=== PATIENT | female | born 1950 | race Caucasian/White ===

== ENCOUNTER 2016-08-18 20:38 | Inpatient (IN) ==
[2016-08-18 21:25] VITALS: BMI 32.2
[2016-08-18] MEDS ORDERED: PRAMIPEXOLE DI HCL 3 MG PO SCH (22:00)
[2016-08-18] MEDS: PERCOCET 5-325 PO PRN (22:04)
[2016-08-18] MEDS ORDERED: COLACE PO PRN (22:09)
[2016-08-18] MEDS ORDERED: SENNA PO PRN (22:29)
[2016-08-18] MEDS ORDERED: NORVASC ONE (22:37)
[2016-08-18] MEDS: VALIUM PO PRN (22:41)
[2016-08-18] MEDS: FLEXERIL PO SCH ×2 (22:53→22:57)
[2016-08-18] MEDS: NORVASC PO SCH (22:56)
[2016-08-19] MEDS: ULTRAM PO SCH ×4 (00:57→17:17)
[2016-08-19] MEDS: PERCOCET 5-325 PO PRN ×2 (03:07→18:18)
[2016-08-19] MEDS: TOPROL XL PO SCH (08:42)
[2016-08-19] MEDS: MIRAPEX PO SCH ×2 (08:42→21:17)
[2016-08-19] MEDS: FERROUS SULFATE PO SCH (08:43)
[2016-08-19] MEDS: FLEXERIL PO SCH ×3 (08:43→21:16)
[2016-08-19] MEDS: NORVASC PO SCH (08:44)
[2016-08-19] MEDS ORDERED: NORVASC PO SCH (09:00)
--- NOTE | 2016-08-19 11:30 | RS.OTINEVL ---
Subjective - Patient information Date of Evaluation: 08/19/16 Date of Arrival on Unit: 08/18/16 Admitted From:: Facility Transfer Usual Living Arrangement: With Spouse Living Arrangement Comments: Lives at home in a one level home. Pt needs a ramp to be built. Home Environment: Mobile Home, Stairs (many) (4 in the back, 8 in the front), Rail Surgical History Comments:: Pt fell and fractured her RUE wrist, and Right hip. Subjective Information/ Patient Comments:: I fell on a concrete floor. I am not used to people taking care of me. 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 Current Level of Function: Partially Dependent Current Equipment Used at Home: None Pain Assessment - Pain Pain Score: 0 (took pain meds) Side: right Pain Aggravating Factors: ADL's, Changing Position, Exercise/Activity, Standing Pain Alleviating Factors: Ice, Medication, Position Change, Sitting Interventions - Objective Patient Orientation: Person, Place, Time, Situation Current Interventions: IV's Observation: Pt was emotional a couple of times during her evaluation. Interventions - ROM Right Upper Extremity AROM: Marked limitation Left Upper Extremity AROM: WFL's Comments: RUE in a Cast - Strength Right Upper Extremity Strength: Severe Weakness Left Upper Extremity Strength: Normal - Sensation Right Upper Extremity Sensation: Intact/Normal Left Upper Extremity Sensation: Intact/Normal Balance - Sitting Balance Static Sitting Balance: Fair Dynamic Sitting Balance: Fair - Standing Balance Static Standing Balance: Poor Dynamic Standing Balance: Poor ADL Skills - Self Feeding Self Feeding: Min Assist - Grooming Grooming: Max Assist - Bathing Bathing UE: Max Assist Bathing LE: Max Assist - Dressing Dressing UE: Max Assist Dressing LE: Max Assist - Toilet Management Toileting Management: Max Assist, 2 person assist Functional Mobility - Bed Mobility Rolling R/L: Min Assist Scooting: Min Assist Supine to Sit: Min Assist Sit to Supine: Min Assist - Transfers Sit to Stand: Min Assist, 2 person assist Stand to Sit: Min Assist, 2 person assist Stand Pivot Transfers: Min Assist, 2 person assist - Ambulation Weight Bearing Status: PWB Assistive Device Used: Rolling Walker Assistance needed with Ambulation: 2 person assist - Safety Awareness Safety Awareness: Good Additional Treatment Performed - Additional units charged ADL: 15 - Time with patient Total treatment time: 30 Activities Patient Interests:: Watching Television, Visiting/Socializing Patient Education Patient Education: Education of diagnosis, Body/Joint mechanics, Home Exercise Program, Home Safety, Education of Plan of Care Teaching Recipient: Patient Teaching Methods: Teach Back Method Used, Discussion Assessment Problem List:: Decreased level of function, Requires training/education, Decreased safety/Risk of falls, Weakness, Pain limits previous level of function Rehab Potential: Good Further Therapy Indicated?: Yes Short Term Goals - Goals GOAL 1: Pt to be independent with toilet hygiene Goal to be met by: 08/25/16 GOAL 2: Pt to be minimal assist to LB dressing. Goal to be met by: 08/25/16 GOAL 3: Pt to increase activity tolerance to 15 minutes with rests PRN. 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 Goal to be met by: 09/01/16 GOAL 2: Pt to be independent with home exercise program. Goal to be met by: 09/01/16 GOAL 3: Pt to increase activity tolerance to 30 minutes with rests PRN. Goal to be met by: 09/01/16 Plan Plan of Care: Therapeutic EX, Neuromuscular Re-Educ, Therapeutic Activity, Self- Care/Home Management Modalities: Cold Pack/Cryotherapy Frequency of Treatment: 1-2 X day, as tolerated Duration of Treatment: 2 Weeks Anticipated Discharge Destination: Home
--- NOTE | 2016-08-19 11:54 | RS.PTINEVL ---
Subjective - Patient information Date of Evaluation: 08/19/16 Date of Arrival on Unit: 08/18/16 Admitted From:: Facility Transfer Usual Living Arrangement: With Spouse Home Environment: Mobile Home, Stairs (many) (4 in the back, 8 in the front), Rail Subjective Information/ Patient Comments:: Patient states she has not been in the hospital since having her daughter. Reports cast on right wrist is loose. States she wants to be able to do as much for herself as she can. She apologizes repeatedly and gets emotional. Daughter is in the room who reports that she will be helping her mother when they get home. Patient's spouse is unable to help her. Reports pain in right wrist and hip comes and goes. Currently, in bed, pain is not too bad. 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 Range of Motion - ROM Right Upper Extremity AROM: Marked limitation (right wrist/hand) Left Upper Extremity AROM: WFL's Right Lower Extremity AROM: Marked limitation (right hip pinning) Left Lower Extremity AROM: WFL's Muscle Strength - Muscle Strength Right Upper Extremity Strength: Normal Left Upper Extremity Strength: Normal Right Lower Extremity Strength: Mild Weakness Left Lower Extremity Strength: Normal Balance - Sitting Balance and Reactions Static Sitting Balance: Good Dynamic Sitting Balance: Good - Standing Balance and Reactions Static Standing Balance: Fair (-) Dynamic Standing Balance: Poor Functional Mobility - Bed Mobility Scooting: Mod Assist, 2 person assist, Verbal Cues, Tactile Cues Supine to Sit: Mod Assist, 2 person assist, Verbal Cues, Tactile Cues Sit to Supine: Max Assist, 2 person assist, Verbal Cues, Tactile Cues Comments:: Patient able to walk hips moderately further back on bed. Max assist of two for sit to supine. - Transfers Sit to Stand: Min Assist, Mod Assist, 2 person assist, Verbal Cues, Tactile Cues Stand to Sit: Min Assist, 2 person assist, Verbal Cues, Tactile Cues Stand Pivot Transfers: Mod Assist, 2 person assist, Verbal Cues, Tactile Cues - Safety Awareness Safety Awareness: Fair Ambulation - Ambulation Weight Bearing Status: PWB (30% right LE) Assistive Device Used: Platform Walker (wheeled) Distance: around foot of bed Assistance needed with Ambulation: Mod Assist, 2 person assist, Verbal Cues, Tactile Cues Quality of Ambulation: Patient needs reminding of weight bearing status on right LE. She works to reduce weight on right LE with verbal cues. Gait Deviations: Narrow Based gait, Forward posture, Short stride, Lacks step continuity Factors Affecting Ambulation: WB Status, Decreased Balance, Pain, Weakness, Decreased Coordination, Decreased ROM, Decreased Safety, Limited Endurance Treatment time - Time with patient Total treatment time: 38 Assessment - Assessment Problem List:: Decreased level of function, Requires training/education, Decreased safety/Risk of falls, Weakness, Pain limits previous level of function Rehab Potential: Good Further Therapy Indicated?: Yes Short Term Goals GOAL #1: Supine to sit with min Assist of 1 and verbal cues. Goal to be met by: 08/24/16 GOAL #2: Sit to stand with min A X 1 and verbal cues. Goal to be met by: 08/24/16 GOAL #3: Amb. with platform walker with min X1 60 feet. Goal to be met by: 08/26/16 Half-Way Goals GOAL #1: All bed mobility independent. Goal to be met by: 09/02/16 GOAL #2: All transfers with CGA of one with good saftey. Goal to be met by: 09/02/16 GOAL #3: Amb. household distances with Platform RW with CGA of one and good safety. Goal to be met by: 09/02/16 Plan Plan of Care: Therapeutic EX, Neuromuscular Re-Educ, Therapeutic Activity, Self- Care/Home Management Modalities: Cold Pack/Cryotherapy Frequency of Treatment: 1-2 X day, as tolerated Duration of Treatment: 2 Weeks Anticipated Discharge Destination: dependent on progress and wt bearing restriction
[2016-08-19] MEDS: XARELTO PO SCH (17:17)
[2016-08-20] MEDS: ULTRAM PO SCH ×4 (00:15→17:07)
[2016-08-20 08:26] LABS: BASOPHILS % (AUTO) 0.8 % (0.0-3.0); EOSINOPHILS # (AUTO) 0.3 K/ul (0.0-0.7); EOSINOPHILS % (AUTO) 5.8 % (0.0-7.0); HEMATOCRIT 30.5 % (37.0-47.0); IMMATURE GRANULOCYTE % (AUTO) 0.2 % (0.0-5.0); LYMPHOCYTES % (AUTO) 20.7 (10.0-50.0); MEAN CORPUSCULAR HEMOGLOBIN 29.1 pg (27.0-31.0); MEAN CORPUSCULAR HGB CONC 32.8 (31.8-35.4); MEAN CORPUSCULAR VOLUME 88.7 fl (81.0-99.0); MONOCYTES # (AUTO) 0.3 K/uL (0.4-2.0); MONOCYTES % (AUTO) 6.6 (0-10); NEUTROPHILS # (AUTO) 3.3 K/ul (2.0-6.9); NEUTROPHILS % (AUTO) 65.9; PLATELET COUNT 157 10^3/uL (140-440); RED BLOOD COUNT 3.44 10^6/ul (4.20-5.40); WHITE BLOOD COUNT 5.03 K/ul (4.6-10.2)
[2016-08-20 08:49] LABS: ALBUMIN 2.8 g/dL (3.4-5.0); ALBUMIN/GLOBULIN RATIO 0.8; ANION GAP 8.2; BILIRUBIN,TOTAL 0.73 mg/dL (0.00-1.20); BUN/CREATININE RATIO 15.78; CREATININE 0.76 mg/dL (0.60-1.30); POTASSIUM 4.2 mmol/L (3.5-5.10); TOTAL PROTEIN 6.3 g/dL (5.8-8.1)
[2016-08-20] MEDS: FLEXERIL PO SCH ×3 (09:54→21:03)
[2016-08-20] MEDS: NORVASC PO SCH (09:54)
[2016-08-20] MEDS: FERROUS SULFATE PO SCH (09:54)
[2016-08-20] MEDS: TOPROL XL PO SCH (09:54)
[2016-08-20] MEDS: MIRAPEX PO SCH ×2 (09:54→21:04)
[2016-08-20] MEDS: PERCOCET 5-325 PO PRN ×2 (13:55→19:24)
[2016-08-20] MEDS: XARELTO PO SCH (17:07)
[2016-08-20] MEDS ORDERED: NON-FORMULARY MEDICATION (Meclizine Hcl [Meclizine Hcl] 25 MG) PO SCH (21:00)
[2016-08-21] MEDS: ULTRAM PO SCH ×4 (00:36→17:46)
[2016-08-21] MEDS: PERCOCET 5-325 PO PRN ×4 (01:34→21:16)
[2016-08-21] MEDS ORDERED: ZYRTEC PO SCH (07:00)
[2016-08-21] MEDS: NORVASC PO SCH (08:32)
[2016-08-21] MEDS: ZYRTEC PO SCH (08:32)
[2016-08-21] MEDS: MIRAPEX PO SCH ×2 (08:32→20:31)
[2016-08-21] MEDS: TOPROL XL PO SCH (08:32)
[2016-08-21] MEDS: FERROUS SULFATE PO SCH (08:32)
[2016-08-21] MEDS: ANTIVERT PO SCH ×2 (08:32→20:32)
[2016-08-21] MEDS: FLEXERIL PO SCH ×3 (08:32→20:32)
[2016-08-21] MEDS ORDERED: MILK OF MAGNESIA PO PRN (09:00)
--- NOTE | 2016-08-21 09:20 | PN ---
DATE OF VISIT: 08/20/16 SUBJECTIVE: Gaby fell in the parking lot at work. She sustained a fracture to her right hip and right forearm; the latter was splinted and she went to surgery with repair of the hip. Her right knee was previously weak but she couldn't have any MRI or further testing because she had galindo. She started her convalescence at [facility] and was transferred here on the for more rehab and management. Today she is interested in having her bandages removed, something for bowels as she has had no bowel movement since the and she notes the splint on her right upper extremity is sliding downward and may need to to be repositioned. OBJECTIVE: V/S: Temperature 97.1, pulse 59, BP 118/71, respirations 22; she has been afebrile all day. GENERAL: Pleasant in no obvious distress. CHEST: Clear. CARDIOVASCULAR: S1, S2 without murmur. No peripheral edema. GI: Firm but nontender. Bowel sounds are present. MUSCULOSKELETAL/NEUROLOGIC: The right upper extremity is in a splint; it does come down to the tips of the finger; the thumb cannot be seen. She has some wiggle of the fingers and light touch is intact there. Her bandages on the right hip are dry and she was not ambulated. LAB REVIEW: White count 5, hemoglobin 10. Chemistries unremarkable. ASSESSMENT: # Right hip fracture # Right wrist fracture # Postop right hip # Casting right wrist # Gait decline - acute on chronic # Gait decline - chronic issues related to the right knee # Right knee pain and weakness # Postop anemia # Postop incision # Postop pain # Anticoagulation needs - currently on Xarelto # Constipation - complicated by pain meds and inactivity PLAN: 1. Medicines reviewed - same. 2. Laxative of choice. 3. Wound care - remove bandage and do so daily. 4. Staff will check with Dr. Arrington tomorrow and what he wants done with the splint. 5. Discharge plan from the onset - home. 6. Physical therapy to continue to work with the special needs. 7. Maybe an MRI of the knee wants the galindo are removed. MAURI
[2016-08-21] MEDS: XARELTO PO SCH (17:46)
[2016-08-22] MEDS: ULTRAM PO SCH ×5 (00:13→23:54)
[2016-08-22] MEDS: MIRAPEX PO SCH ×2 (08:00→21:00)
[2016-08-22] MEDS: TOPROL XL PO SCH (08:00)
[2016-08-22] MEDS: ZYRTEC PO SCH (08:01)
[2016-08-22] MEDS: ANTIVERT PO SCH ×2 (08:01→21:01)
[2016-08-22] MEDS: FLEXERIL PO SCH ×3 (08:01→21:01)
[2016-08-22] MEDS: FERROUS SULFATE PO SCH (08:01)
[2016-08-22] MEDS: NORVASC PO SCH (08:01)
--- NOTE | 2016-08-22 09:50 | HP ---
SOURCE: The source of this information is prior knowledge of the patient, review of her previous medical records, her current chart as well as discussion with she and her daughter, all considered reliable. PATIENT PROFILE: The patient is a 66-year-old female resident of [place]; she was cooperative. CHIEF COMPLAINT: "I broke my leg." BRIEF HISTORY OF PRESENT ILLNESS: The patient was walking across the parking lot at work and she fell. She had injury to her right wrist and hips; was brought to this facility and was found to have fractures of both. She was admitted for surgical interventions at least on her hip. There was no loss of consciousness. For several months, she has had problems with pain on and off in her right knee; it was more bothersome the day of the injury. It has even recently had swelling and even a resting pain. The last time in the office she was reluctant to have any intervention. No chest pain or shortness of breath. PAST HISTORY: CHILDHOOD: Unremarkable. ALLERGIES/INTOLERANCE: NKDA CURRENT MEDICATIONS: 1. Norvasc/Felodipine 5 mg one b.i.d. 2. Toprol/metoprolol succinate XL 50 mg once a day 3. Mirapex/pramipexole 0.25 mg one p.o. each day and 1.5 mg at night 4. Ultram/tramadol 50 mg one q.6h p.r.n. pain HOSPITALIZATIONS/SURGERIES/PROCEDURES: The patient is 4, Para 3, AB 1; had a dilation and curettage at age 22 that was benign and a tubal ligation at age 34. Hospitalizations at [facility] in [place] 06/06/14 through 06/08/[address] Greenberg. SOCIAL HISTORY: Never smoked though exposed to secondary smoke all her life. No alcohol use or drugs. 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 She was in 1973 to her current . FAMILY HISTORY: Heart disease in mother and two sisters and son. Diabetes in mother, colon cancer in brother and sister. Stomach cancer in father. REVIEW OF SYSTEMS: GENERAL: There has been no recent fever. INTEGUMENT: No wounds or rash. HEENT: She did not hit her head and there is no headache. NECK: Denies pain or mass. CHEST: Denies cough, wheeze or hemoptysis. CARDIOVASCULAR: Denies chest pain, palpitations, ankle edema; she does have hypertension. GI: No abdominal pain, nausea, vomiting, diarrhea, melena. : No dysuria, frequency or urgency. MUSCULOSKELETAL/NEUROLOGIC: Even the left knee gives her on and off trouble; occasional on and off neck and back discomfort and soreness. She has never had weakness of face or extremities; slurred speech. PSYCHIATRIC: Life stress as tolerated without significant depression or anxiety. DIAGNOSTIC DATA: (From [facility]) White count 9.52, hemoglobin 11.8, normocytic: PT and PTT were normal. Chemistries show BUN 23, creatinine 0.83, calculated GFR 69; urine has specific gravity greater than 1.030 but otherwise negative. PHYSICAL EXAMINATION: VITALS: Temperature 99.3, pulse 78, BP 130/76, respiratory rate 18, 02 sat 96% on room air. Weight 200 lbs, 4.8 oz; Height 5'7.2". GENERAL: Appropriate for age, well-kept white female in no obvious distress. INTEGUMENT: Eyegrounds are pink. Anicteric sclerae. Mucous membranes are moist. No ankle edema. HEENT: Facial symmetry. Pupils equal, round, extraocular movements intact. NECK: Nontender. No visible lymphadenopathy, thyromegaly, mass seen or felt and supple. CHEST: Clear, equal breath sounds. CARDIOVASCULAR: S1, S2 without murmur or carotid bruit. Distal pulses intact. GI: Obese. Soft. No rebound, guarding, mass or tenderness. MUSCULOSKELETAL/NEUROLOGIC: The right upper extremity forearm is all splinted. There is pain over the right hip to light touch; range of motion of the right extremities were not checked. The left extremities have full range of motion. She is alert, oriented times three with purposeful conversation, pleasant affect. ASSESSMENT/PROBLEM LIST: 1. A 66-year-old white female with allergies/intolerances, none. 2. Procedural history, see above. 3. Family history, see above. 4. Tobacco exposure to see above. 5. Deficiency screening (lack of colonoscopy). 6. Obesity. 7. Hypertension. 8. Degenerative joint disease, diffuse. 9. Degenerative joint disease, knee. 10. Restless leg syndrome. 11. Gait decline, chronic. 12. History of anemia. REASON FOR ADMISSION: 1. Right hip fracture 2. Right wrist fracture 3. Gait decline, acute 4. Right knee pain 5. Anemia, 11, normocytic PROCEDURE: Intramedullary rodding of right nondisplaced closed intertrochanteric hip fracture 08/15/16. HOSPITAL COURSE: Her quickly felt to be medically stable for surgery. She had repair of her hip fracture 08/15/[address] Manav Arrington. Postoperatively, she had no significant major complications. The usual issues of dealing with her incision , her pain and her anemia, preventing constipation and trying to improve her gait were entertained. Anticoagulation was Xarelto. Splinting was performed to her right wrist fracture. Combined her gait was poor and not felt to be amenable to home discharge. A day was spent trying to find a facility that would take her. At this juncture, [facility] is accepting her. Her WBC started at 9.52 and remained stable. Her hemoglobin 11.8 and dropped to 9.6. Her initial chemistries were normal. EKG was negative. We wanted an MRI of her right knee but she had the surgical galindo and this will have to wait. DISCHARGE ASSESSMENT: (FROM [facility]) 1. Right hip fracture/pain 2. Right wrist fracture/pain 3. Right hip surgical incision 4. Gait decline-acute/chronic 5. Right knee pain 6. Anemia-blood loss/postop contribution 7. Anticoagulation - Xarelto (hip surgery) REASON FOR ADMISSION: # Right hip fracture # Right wrist fracture # Postop right hip # Casting right wrist # Gait decline- acute on chronic # Gait decline - chronic issues related to the right knee # Right knee pain and weakness # Postop anemia # Postop incision # Postop pain # Anticoagulation needs - currently on Xarelto # Constipation - complicated by pain medications and inactivity PLAN: (See AVS) 1. Medicine reviewed - same 2. Laxative of choice 3. Wound care - remove bandage and do so daily 4. PT/OT evaluation 5. Discharge plan from onset - home CONDITION: Stable; improved. PROGNOSIS: Good. MAURI
[2016-08-22] MEDS: XARELTO PO SCH (17:55)
[2016-08-22] MEDS: PERCOCET 5-325 PO PRN (17:56)
[2016-08-23 04:40] LABS: BASOPHILS # (AUTO) 0.1 K/uL (0-0.2); BASOPHILS % (AUTO) 0.9 % (0.0-3.0); EOSINOPHILS # (AUTO) 0.3 K/ul (0.0-0.7); HEMATOCRIT 29.1 % (37.0-47.0); HEMOGLOBIN 9.5 g/dl (12.0-16.0); IMMATURE GRANULOCYTE % (AUTO) 0.5 % (0.0-5.0); LYMPHOCYTES # (AUTO) 1.3 K/uL (0.60-3.4); LYMPHOCYTES % (AUTO) 23.6 (10.0-50.0); MEAN CORPUSCULAR HEMOGLOBIN 29.1 pg (27.0-31.0); MEAN CORPUSCULAR HGB CONC 32.6 (31.8-35.4); MONOCYTES # (AUTO) 0.4 K/uL (0.4-2.0); MONOCYTES % (AUTO) 6.9 (0-10); NEUTROPHILS # (AUTO) 3.4 K/ul (2.0-6.9); NEUTROPHILS % (AUTO) 62.1; PLATELET COUNT 194 10^3/uL (140-440); RED BLOOD COUNT 3.27 10^6/ul (4.20-5.40)
[2016-08-23 04:58] LABS: ALBUMIN 2.9 g/dL (3.4-5.0); ALBUMIN/GLOBULIN RATIO 0.88; ANION GAP 10.7; BILIRUBIN,TOTAL 0.61 mg/dL (0.00-1.20); BUN/CREATININE RATIO 15.29; CALCIUM 9.1 mg/dL (8.2-10.2); CREATININE 0.85 mg/dL (0.60-1.30); POTASSIUM 3.7 mmol/L (3.5-5.10); TOTAL PROTEIN 6.2 g/dL (5.8-8.1)
[2016-08-23] MEDS: ULTRAM PO SCH ×3 (05:42→18:25)
[2016-08-23] MEDS: MIRAPEX PO SCH ×2 (09:14→20:29)
[2016-08-23] MEDS: ANTIVERT PO SCH ×2 (09:14→20:30)
[2016-08-23] MEDS: FLEXERIL PO SCH ×3 (09:15→20:30)
[2016-08-23] MEDS: ZYRTEC PO SCH (09:15)
[2016-08-23] MEDS: NORVASC PO SCH (09:15)
[2016-08-23] MEDS: FERROUS SULFATE PO SCH (09:15)
[2016-08-23] MEDS: TOPROL XL PO SCH (09:15)
--- NOTE | 2016-08-23 09:52 | PN ---
DATE OF VISIT: 08/22/16 CHIEF COMPLAINT: "I am trying to get over my fracture. SUBJECTIVE: She fell at work in the parking lot. She fractured her right hip and her right wrist. The latter was splinted. She went to surgery for repair of her hip. Postoperatively she had such difficulty getting around she was felt to be a candidate for swing bed; accepted here. Her splint came loose; she went yesterday and had it replaced. Her bowels are moving. She is eating and she is ambulating in the room and toward the door. OBJECTIVE: V/S: Temperature 98.6, pulse 68, BP 118/69, respirations 20 - all stable. GENERAL: No acute distress. INTEGUMENT: She had superficial abrasions around the right thumb and a couple of fingers (where the splint rubbed) - no obvious open wounds. Her incision bandage is dry. No fluctuance or significant tenderness to palpation there. No ankle edema. Eyegrounds are pink. CHEST: Clear. CARDIOVASCULAR: Regular. GI: Soft. LABS/X-RAYS: Two days ago, hemoglobin was 10. Chemistry essentially normal. ASSESSMENT: # Right hip fracture # Right wrist fracture # Postop right hip # Splinting right wrist # Gait decline - acute on chronic # Gait decline - chronic issues related to the right knee # Right knee pain and weakness - patient improving # Postop anemia # Postop incision healing # Postop pain - improving # Anticoagulation - currently on Xarelto # Constipation - improved # Potential instability of right knee PLAN: 1. I have told her to call the orthopedic clinic and see since she is going there in two days whether she can potentially have her galindo removed; if she could, could she also have an MRI of the knee and discuss this with Dr. Arrington. If by some chance, she is dischargeable on Sunday, we still have the issue of whether her right knee is stable for significant ambulation. 2. Continue PT. 3. Medications reviewed - same. 4. Labs - before discharge. 5. Discharge plan at this point - she is trying to get a ramp built in hopes to go home. [facility] PARTNERSWilliam
[2016-08-23] MEDS: XARELTO PO SCH (16:14)
[2016-08-23] MEDS: PERCOCET 5-325 PO PRN (19:27)
[2016-08-23] MEDS: VALIUM PO PRN (21:31)
[2016-08-24] MEDS: ULTRAM PO SCH ×4 (00:25→17:58)
[2016-08-24] MEDS: PERCOCET 5-325 PO PRN ×2 (03:52→21:16)
[2016-08-24] MEDS: TOPROL XL PO SCH (09:30)
[2016-08-24] MEDS: MIRAPEX PO SCH ×2 (09:30→20:35)
[2016-08-24] MEDS: FLEXERIL PO SCH ×3 (09:30→20:36)
[2016-08-24] MEDS: FERROUS SULFATE PO SCH (09:30)
[2016-08-24] MEDS: ZYRTEC PO SCH (09:30)
[2016-08-24] MEDS: ANTIVERT PO SCH ×2 (09:31→20:36)
[2016-08-24] MEDS: NORVASC PO SCH (09:31)
[2016-08-24] MEDS: XARELTO PO SCH (17:58)
[2016-08-24] MEDS: VALIUM PO PRN (22:52)
[2016-08-25] MEDS: ULTRAM PO SCH ×4 (00:56→17:40)
[2016-08-25] MEDS: MIRAPEX PO SCH ×2 (09:38→20:56)
[2016-08-25] MEDS: NORVASC PO SCH (09:38)
[2016-08-25] MEDS: TOPROL XL PO SCH (09:39)
[2016-08-25] MEDS: FLEXERIL PO SCH ×3 (09:39→20:56)
[2016-08-25] MEDS: ANTIVERT PO SCH ×2 (09:39→20:56)
[2016-08-25] MEDS: ZYRTEC PO SCH (09:39)
[2016-08-25] MEDS: FERROUS SULFATE PO SCH (09:39)
--- NOTE | 2016-08-25 12:53 | PN ---
DATE OF VISIT: 08/24/16 CHIEF COMPLAINT: "I am getting better." SUBJECTIVE: She fell at work in the parking lot. She fractured her right hip and her right wrist. The latter was splinted. She went to surgery for repair of her hip. Postoperatively she had such difficulty getting around she was felt to be a candidate for swing bed; accepted here. Her splint came loose; she went yesterday and had it replaced. Her bowels are moving. She is eating and she is ambulating in the room and toward the door. INTERVAL CHANGE: She says she is walking better; a little farther. She still has pain concerns with the right knee; it has been discovered that when she goes to Dr. Arrington she cannot have an MRI but he does plan to examine her knee and may remove galindo. She continues with discomfort of the right wrist and forearm though casted. She has had bowel movements. She is eating. Her pain is controlled. OBJECTIVE: V/S: Temperature 97.4, pulse 66, respirations 16, BP 104/63; all stable in retrospect. GENERAL: No acute distress. CHEST: Clear. CARDIOVASCULAR: Regular, S1, S2 without murmur. Trace to 1+ right lower extremity mild pitting of the ankle area; none on the left. She has very superficial abrasions around some aspects of the fingers. GI: Nontender. LABS/X-RAYS: Labs yesterday: Hemoglobin 9.5 compared to 10; chemistries unremarkable. ASSESSMENT: # Right hip fracture # Right wrist fracture # Postop right hip # Splinting right wrist # Gait decline - acute on chronic # Gait decline - chronic issues related to the right knee # Right knee pain and weakness - patient improving # Postop anemia # Postop incision healing # Postop pain - improving # Anticoagulation - currently on Xarelto # Constipation - improved # Potential instability of right knee PLAN: 1. Generally, slowly improving; she still is not ambulating well enough to do so without assistance and needs her right knee examined, possibly splinted if it shows any sign of instability. 2. To [facility] tomorrow for care to the forearm; perhaps it is going to be unsplinted and casted. She may have her galindo removed. She will get the right knee orthopedically examined and decisions made concerning splinting or etc. 3. Continue PT/OT. 4. Continue nursing supervision particularly related to stooling. 5. Short-term discharge planning is for home but once better than today. CONCHITAD
[2016-08-25] MEDS: PERCOCET 5-325 PO PRN (12:54)
[2016-08-25] MEDS: XARELTO PO SCH (16:44)
[2016-08-25] MEDS: VALIUM PO PRN (20:56)
[2016-08-26] MEDS: ULTRAM PO SCH ×5 (00:20→23:19)
[2016-08-26 07:45] LABS: BASOPHILS # (AUTO) 0.1 K/uL (0-0.2); BASOPHILS % (AUTO) 0.9 % (0.0-3.0); EOSINOPHILS # (AUTO) 0.3 K/ul (0.0-0.7); EOSINOPHILS % (AUTO) 4.8 % (0.0-7.0); HEMATOCRIT 30.4 % (37.0-47.0); HEMOGLOBIN 9.8 g/dl (12.0-16.0); IMMATURE GRANULOCYTE % (AUTO) 0.5 % (0.0-5.0); LYMPHOCYTES # (AUTO) 1.3 K/uL (0.60-3.4); LYMPHOCYTES % (AUTO) 22.2 (10.0-50.0); MEAN CORPUSCULAR HEMOGLOBIN 28.8 pg (27.0-31.0); MEAN CORPUSCULAR HGB CONC 32.2 (31.8-35.4); MEAN CORPUSCULAR VOLUME 89.4 fl (81.0-99.0); MONOCYTES # (AUTO) 0.3 K/uL (0.4-2.0); MONOCYTES % (AUTO) 5.3 (0-10); NEUTROPHILS # (AUTO) 3.7 K/ul (2.0-6.9); NEUTROPHILS % (AUTO) 66.3; PLATELET COUNT 245 10^3/uL (140-440); WHITE BLOOD COUNT 5.64 K/ul (4.6-10.2)
[2016-08-26 08:07] LABS: ALBUMIN 3.1 g/dL (3.4-5.0); ALBUMIN/GLOBULIN RATIO 0.97; ANION GAP 13.9; BILIRUBIN,TOTAL 0.41 mg/dL (0.00-1.20); BUN/CREATININE RATIO 14.11; CALCIUM 9.3 mg/dL (8.2-10.2); CREATININE 0.85 mg/dL (0.60-1.30); POTASSIUM 3.9 mmol/L (3.5-5.10); TOTAL PROTEIN 6.3 g/dL (5.8-8.1)
[2016-08-26] MEDS: MIRAPEX PO SCH ×2 (08:48→20:27)
[2016-08-26] MEDS: FLEXERIL PO SCH ×3 (08:48→20:14)
[2016-08-26] MEDS: ANTIVERT PO SCH ×2 (08:48→20:14)
[2016-08-26] MEDS: FERROUS SULFATE PO SCH (08:48)
[2016-08-26] MEDS: TOPROL XL PO SCH (08:48)
[2016-08-26] MEDS: ZYRTEC PO SCH (08:48)
[2016-08-26] MEDS: NORVASC PO SCH (08:48)
[2016-08-26] MEDS: XARELTO PO SCH (17:29)
[2016-08-26] MEDS: VALIUM PO PRN (20:15)
[2016-08-26] MEDS: PERCOCET 5-325 PO PRN (20:27)
[2016-08-27] MEDS: PERCOCET 5-325 PO PRN (04:02)
[2016-08-27] MEDS: ULTRAM PO SCH ×4 (05:26→23:11)
[2016-08-27] MEDS: TOPROL XL PO SCH (08:22)
[2016-08-27] MEDS: ZYRTEC PO SCH (08:22)
[2016-08-27] MEDS: MIRAPEX PO SCH ×2 (08:22→20:09)
[2016-08-27] MEDS: NORVASC PO SCH (08:22)
[2016-08-27] MEDS: FLEXERIL PO SCH ×3 (08:23→20:13)
[2016-08-27] MEDS: FERROUS SULFATE PO SCH (08:23)
[2016-08-27] MEDS: ANTIVERT PO SCH ×2 (08:23→20:10)
[2016-08-27] MEDS: XARELTO PO SCH (17:05)
[2016-08-27] MEDS: VALIUM PO PRN (20:13)
[2016-08-28] MEDS: ULTRAM PO SCH ×4 (05:10→23:49)
[2016-08-28] MEDS: TOPROL XL PO SCH (08:02)
[2016-08-28] MEDS: MIRAPEX PO SCH ×2 (08:02→21:18)
[2016-08-28] MEDS: FERROUS SULFATE PO SCH (08:02)
[2016-08-28] MEDS: NORVASC PO SCH (08:03)
[2016-08-28] MEDS: ANTIVERT PO SCH ×2 (08:03→21:19)
[2016-08-28] MEDS: FLEXERIL PO SCH ×3 (08:03→21:19)
[2016-08-28] MEDS: ZYRTEC PO SCH (08:03)
[2016-08-28] MEDS: XARELTO PO SCH (16:26)
[2016-08-28] MEDS: PERCOCET 5-325 PO PRN (20:32)
[2016-08-29 04:23] LABS: BASOPHILS # (AUTO) 0.1 K/uL (0-0.2); BASOPHILS % (AUTO) 1.4 % (0.0-3.0); EOSINOPHILS # (AUTO) 0.4 K/ul (0.0-0.7); EOSINOPHILS % (AUTO) 7.6 % (0.0-7.0); HEMATOCRIT 30.6 % (37.0-47.0); HEMOGLOBIN 9.7 g/dl (12.0-16.0); IMMATURE GRANULOCYTE % (AUTO) 0.4 % (0.0-5.0); LYMPHOCYTES # (AUTO) 2.1 K/uL (0.60-3.4); MEAN CORPUSCULAR HEMOGLOBIN 28.7 pg (27.0-31.0); MEAN CORPUSCULAR HGB CONC 31.7 (31.8-35.4); MEAN CORPUSCULAR VOLUME 90.5 fl (81.0-99.0); MONOCYTES # (AUTO) 0.3 K/uL (0.4-2.0); MONOCYTES % (AUTO) 6.2 (0-10); NEUTROPHILS % (AUTO) 41.4; PLATELET COUNT 287 10^3/uL (140-440); RED BLOOD COUNT 3.38 10^6/ul (4.20-5.40); WHITE BLOOD COUNT 4.86 K/ul (4.6-10.2)
[2016-08-29 04:54] LABS: ANION GAP 10.8; BILIRUBIN,TOTAL 0.25 mg/dL (0.00-1.20); BUN/CREATININE RATIO 14.43; CALCIUM 9.1 mg/dL (8.2-10.2); CREATININE 0.97 mg/dL (0.60-1.30); POTASSIUM 3.8 mmol/L (3.5-5.10)
[2016-08-29] MEDS: ULTRAM PO SCH ×3 (05:35→17:53)
[2016-08-29] MEDS: ZYRTEC PO SCH (09:25)
[2016-08-29] MEDS: MIRAPEX PO SCH ×2 (09:25→20:17)
[2016-08-29] MEDS: ANTIVERT PO SCH ×2 (09:25→20:17)
[2016-08-29] MEDS: TOPROL XL PO SCH (09:25)
[2016-08-29] MEDS: FLEXERIL PO SCH ×3 (09:26→20:17)
[2016-08-29] MEDS: NORVASC PO SCH (09:26)
[2016-08-29] MEDS: FERROUS SULFATE PO SCH (09:26)
--- NOTE | 2016-08-29 10:44 | PN ---
DATE OF VISIT: 08/28/16 - [facility] B[facility] CHIEF COMPLAINT: "I am not walking well." SUBJECTIVE: She was walking across the parking lot at work and fell. She sustained a fracture to her right hip and wrist. She was taken to [facility] and had casting of the right wrist and surgery on the hip. She was sent here for rehab. Since here she has been back to the [facility] and had splint changed to cast on the arm. She has had her galindo removed and was declined an MRI of the right knee. The right knee gave out the day she fell and was without fracture. She is trying to improve her ambulation but is going slow. She has been told that she needs therapy all week by her therapist. There has been additional issues of constipation improved with sporadic laxatives and anemia that has been followed. OBJECTIVE: V/S: Temperature 97.8, pulse 62, BP 114/68, respirations 16. GENERAL: No acute distress. INTEGUMENT: A few scabbed areas around the base of thumb and fingers; these are dry. Incision is clean and sutures removed and approximated well. Eyegrounds are pale. HEENT: Facial symmetry. NECK: Nontender. CHEST: Clear. CARDIOVASCULAR: Regular with no peripheral edema. GI: Soft, nontender. MUSCULOSKELETAL/NEUROLOGIC: The right knee seems to have laxity of the lateral collateral compared to the left; there is no palpable effusion, no redness. LABS/X-RAYS: Hemoglobin 9.8, normocytic. Chemistries negative. ASSESSMENT: # Right hip fracture # Right wrist fracture # Postop right hip # Splinting right wrist # Gait decline - acute on chronic # Gait decline - chronic issues related to the right knee # Right knee pain and weakness - which needs MRI to check for internal derangement # Anemia - postop affected - iron replaced # Postop incision healing # Postop pain - improving # Anticoagulation - currently on Xarelto # Constipation - post op affected by pain medication, improved # Potential instability of right knee PLAN: 1. Working to get an MRI. 2. Continue with therapy. 3. Laxative as needed. 4. Watching hemoglobin. [facility]ENTERWilliam
[2016-08-29] MEDS: XARELTO PO SCH (16:51)
[2016-08-29] MEDS: MIRALAX PO PRN (17:32)
[2016-08-29] MEDS: COLACE PO SCH (20:17)
[2016-08-29] MEDS: PERCOCET 5-325 PO PRN (23:06)
[2016-08-30] MEDS: ULTRAM PO SCH ×4 (01:19→17:32)
[2016-08-30] MEDS: NORVASC PO SCH (08:00)
[2016-08-30] MEDS: MIRAPEX PO SCH ×2 (08:00→21:28)
[2016-08-30] MEDS: FLEXERIL PO SCH ×3 (08:00→21:28)
[2016-08-30] MEDS: TOPROL XL PO SCH (08:01)
[2016-08-30] MEDS: COLACE PO SCH ×2 (08:01→21:29)
[2016-08-30] MEDS: ANTIVERT PO SCH ×2 (08:01→21:29)
[2016-08-30] MEDS: ZYRTEC PO SCH (08:01)
[2016-08-30] MEDS: FERROUS SULFATE PO SCH (08:01)
--- NOTE | 2016-08-30 13:39 | PN ---
DATE OF SERVICE: 08/30/16 CHIEF COMPLAINT: "I am getting better at walking." BRIEF HISTORY OF PRESENT ILLNESS: Ms. Lund fell in the parking lot at work. She had a right hip fracture and a fracture of the right forearm. She is treated first at [facility] with surgery and initial convalescence, brought here for swing bed program. Interval issues have included some abrasions around her fingers and thumb of the right hand with splinting; which was corrected and is slowly healing and on and off constipation for which nurses are using various medicines. With her physical therapy, her gait is improving. It has been a slow process because of weight restrictions for her right leg and the fracture of her right arm. She denies shortness of breath or chest pain. She is sleeping well at night and eating well. OBJECTIVE: V/S: Temperature 97.3, pulse 61, respirations 20, BP 106/64. GENERAL: No obvious distress. CHEST: Clear. CARDIOVASCULAR: Regular without murmur or peripheral edema. GI: Soft, nontender, obese. 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 Nonfocal use of extremities. Alert and oriented. LABS/X-RAYS: Yesterday's hemoglobin was 9.7 compared to 10; chemistries were unremarkable. This pattern of vitals is all stable as described. ASSESSMENT: # Right hip fracture # Right wrist fracture # Postop right hip # Splinting right wrist # Gait decline - acute on chronic issues # Gait decline - chronic issues related to the right knee # Right knee pain and weakness - pending MRI # Anemia - postop affected and iron replaced # Postop incision - healing # Postop pain - improving # Anticoagulation - currently Xarelto - indication postop right hip # Constipation - post op affected by pain medication # Potential instability of right knee PLAN: 1. Since we can't get an MRI for awhile, therapy has been asked to review for brace. 2. Meds reviewed - continue same and I did offer additional medicines for constipation if she desires. 3. Labs reviewed - same and before discharge, will check an iron level. 4. Continue with therapy. 5. Discharge planning - it is the patient's hope to go home and it maybe something we can accomplish by the end of the weekend. [facility]
[2016-08-30] MEDS: XARELTO PO SCH (17:32)
[2016-08-30] MEDS: PERCOCET 5-325 PO PRN (21:29)
[2016-08-30] MEDS: VALIUM PO PRN (21:29)
[2016-08-31] MEDS: ULTRAM PO SCH ×5 (00:11→23:52)
[2016-08-31] MEDS: PERCOCET 5-325 PO PRN ×2 (03:00→20:47)
[2016-08-31] MEDS: TOPROL XL PO SCH (08:52)
[2016-08-31] MEDS: FLEXERIL PO SCH ×3 (08:52→20:47)
[2016-08-31] MEDS: MIRAPEX PO SCH ×2 (08:52→20:47)
[2016-08-31] MEDS: COLACE PO SCH ×2 (08:52→20:47)
[2016-08-31] MEDS: ZYRTEC PO SCH (08:52)
[2016-08-31] MEDS: FERROUS SULFATE PO SCH (08:53)
[2016-08-31] MEDS: NORVASC PO SCH (08:53)
[2016-08-31] MEDS: ANTIVERT PO SCH ×2 (08:53→20:47)
[2016-08-31] MEDS: MIRALAX PO PRN (14:56)
[2016-08-31] MEDS: XARELTO PO SCH (17:30)
[2016-08-31] MEDS: VALIUM PO PRN (20:46)
[2016-09-01] MEDS: VALIUM PO PRN (03:02)
[2016-09-01] MEDS: PERCOCET 5-325 PO PRN (03:02)
[2016-09-01 05:31] VITALS: BP 114/70; TEMP 97.1
[2016-09-01] MEDS: ULTRAM PO SCH ×2 (05:38→12:13)
[2016-09-01 06:11] LABS: BASOPHILS # (AUTO) 0.1 K/uL (0-0.2); BASOPHILS % (AUTO) 1.3 % (0.0-3.0); EOSINOPHILS # (AUTO) 0.3 K/ul (0.0-0.7); EOSINOPHILS % (AUTO) 5.9 % (0.0-7.0); HEMATOCRIT 34.6 % (37.0-47.0); HEMOGLOBIN 11.1 g/dl (12.0-16.0); IMMATURE GRANULOCYTE % (AUTO) 0.2 % (0.0-5.0); LYMPHOCYTES # (AUTO) 1.9 K/uL (0.60-3.4); LYMPHOCYTES % (AUTO) 35.5 (10.0-50.0); MEAN CORPUSCULAR HEMOGLOBIN 28.6 pg (27.0-31.0); MEAN CORPUSCULAR HGB CONC 32.1 (31.8-35.4); MEAN CORPUSCULAR VOLUME 89.2 fl (81.0-99.0); MONOCYTES # (AUTO) 0.3 K/uL (0.4-2.0); MONOCYTES % (AUTO) 4.9 (0-10); NEUTROPHILS # (AUTO) 2.9 K/ul (2.0-6.9); NEUTROPHILS % (AUTO) 52.2; PLATELET COUNT 318 10^3/uL (140-440); RED BLOOD COUNT 3.88 10^6/ul (4.20-5.40); WHITE BLOOD COUNT 5.47 K/ul (4.6-10.2)
[2016-09-01 06:35] LABS: ALBUMIN 3.4 g/dL (3.4-5.0); ALBUMIN/GLOBULIN RATIO 0.97; ANION GAP 12.9; BILIRUBIN,TOTAL 0.32 mg/dL (0.00-1.20); BUN/CREATININE RATIO 14.58; CALCIUM 9.7 mg/dL (8.2-10.2); CREATININE 0.96 mg/dL (0.60-1.30); POTASSIUM 3.9 mmol/L (3.5-5.10); TOTAL PROTEIN 6.9 g/dL (5.8-8.1)
[2016-09-01] MEDS ORDERED: DULCOLAX RC STA (07:28)
[2016-09-01] MEDS: COLACE PO SCH (09:34)
[2016-09-01] MEDS: FLEXERIL PO SCH ×2 (09:35→16:48)
[2016-09-01] MEDS: ZYRTEC PO SCH (09:35)
[2016-09-01] MEDS: NORVASC PO SCH (09:35)
[2016-09-01] MEDS: FERROUS SULFATE PO SCH (09:36)
[2016-09-01] MEDS: TOPROL XL PO SCH (09:36)
[2016-09-01] MEDS: ANTIVERT PO SCH (09:38)
[2016-09-01] MEDS: MIRAPEX PO SCH (09:42)
--- NOTE | 2016-09-14 13:18 | DS ---
DATE OF SERVICE: 09/01/16 PATIENT PROFILE: The patient is a 66-year-old female resident of [place]; she was cooperative. CHIEF COMPLAINT: "I broke my leg." BRIEF HISTORY OF PRESENT ILLNESS: The patient was walking across the parking lot at work and she fell. She had injury to her right wrist and hips; was brought to this facility and was found to have fractures of both. She was admitted for surgical interventions at least on her hip. There was no loss of consciousness. For several months, she has had problems with pain on and off in her right knee; it was more bothersome the day of the injury. It has even recently had swelling and even a resting pain. The last time in the office she was reluctant to have any intervention. No chest pain or shortness of breath. PAST HISTORY: CHILDHOOD: Unremarkable. ALLERGIES/INTOLERANCE: NKDA CURRENT MEDICATIONS: 1. Norvasc/Felodipine 5 mg one b.i.d. 2. Toprol/metoprolol succinate XL 50 mg once a day 3. Mirapex/pramipexole 0.25 mg one p.o. each day and 1.5 mg at night 4. Ultram/tramadol 50 mg one q.6h p.r.n. pain HOSPITALIZATIONS/SURGERIES/PROCEDURES: The patient is 4, Para 3, AB 1; had a dilation and curettage at age 22 that was benign and a tubal ligation at age 34. Hospitalizations at [facility] in [place] 06/06/14 through 06/08/[address] Greenberg. SOCIAL HISTORY: Never smoked though exposed to secondary smoke all her life. No alcohol use or drugs. 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 She was in 1973 to her current . FAMILY HISTORY: Heart disease in mother and two sisters and son. Diabetes in mother, colon cancer in brother and sister. Stomach cancer in father. REVIEW OF SYSTEMS: GENERAL: There has been no recent fever. INTEGUMENT: No wounds or rash. HEENT: She did not hit her head and there is no headache. NECK: Denies pain or mass. CHEST: Denies cough, wheeze or hemoptysis. CARDIOVASCULAR: Denies chest pain, palpitations, ankle edema; she does have hypertension. GI: No abdominal pain, nausea, vomiting, diarrhea, melena. : No dysuria, frequency or urgency. MUSCULOSKELETAL/NEUROLOGIC: Even the left knee gives her on and off trouble; occasional on and off neck and back discomfort and soreness. She has never had weakness of face or extremities; slurred speech. PSYCHIATRIC: Life stress as tolerated without significant depression or anxiety. DIAGNOSTIC DATA: (From [facility]) White count 9.52, hemoglobin 11.8, normocytic: PT and PTT were normal. Chemistries show BUN 23, creatinine 0.83, calculated GFR 69; urine has specific gravity greater than 1.030 but otherwise negative. PHYSICAL EXAMINATION: VITALS: Temperature 99.3, pulse 78, BP 130/76, respiratory rate 18, 02 sat 96% on room air. Weight 200 lbs, 4.8 oz; Height 5'7.2". GENERAL: Appropriate for age, well-kept white female in no obvious distress. INTEGUMENT: Eyegrounds are pink. Anicteric sclerae. Mucous membranes are moist. No ankle edema. HEENT: Facial symmetry. Pupils equal, round, extraocular movements intact. NECK: Nontender. No visible lymphadenopathy, thyromegaly, mass seen or felt and supple. CHEST: Clear, equal breath sounds. CARDIOVASCULAR: S1, S2 without murmur or carotid bruit. Distal pulses intact. GI: Obese. Soft. No rebound, guarding, mass or tenderness. MUSCULOSKELETAL/NEUROLOGIC: The right upper extremity forearm is all splinted. There is pain over the right hip to light touch; range of motion of the right extremities were not checked. The left extremities have full range of motion. She is alert, oriented times three with purposeful conversation, pleasant affect. ASSESSMENT/PROBLEM LIST: 1. A 66-year-old white female with allergies/intolerances, none. 2. Procedural history, see above. 3. Family history, see above. 4. Tobacco exposure to see above. 5. Deficiency screening (lack of colonoscopy). 6. Obesity. 7. Hypertension. 8. Degenerative joint disease, diffuse. 9. Degenerative joint disease, knee. 10. Restless leg syndrome. 11. Gait decline, chronic. 12. History of anemia. REASON FOR ADMISSION: 1. Right hip fracture 2. Right wrist fracture 3. Gait decline, acute 4. Right knee pain 5. Anemia, 11, normocytic PROCEDURE: Intramedullary rodding of right nondisplaced closed intertrochanteric hip fracture 08/15/16. HOSPITAL COURSE: Her quickly felt to be medically stable for surgery. She had repair of her hip fracture 08/15/[address] Manav Arrington. Postoperatively, she had no significant major complications. The usual issues of dealing with her incision , her pain and her anemia, preventing constipation and trying to improve her gait were entertained. Anticoagulation was Xarelto. Splinting was performed to her right wrist fracture. Combined her gait was poor and not felt to be amenable to home discharge. A day was spent trying to find a facility that would take her. At this juncture, [facility] is accepting her. Her WBC started at 9.52 and remained stable. Her hemoglobin 11.8 and dropped to 9.6. Her initial chemistries were normal. EKG was negative. We wanted an MRI of her right knee but she had the surgical galindo and this will have to wait. DISCHARGE ASSESSMENT: (FROM [facility]) 1. Right hip fracture/pain 2. Right wrist fracture/pain 3. Right hip surgical incision 4. Gait decline-acute/chronic 5. Right knee pain 6. Anemia-blood loss/postop contribution 7. Anticoagulation - Xarelto (hip surgery) REASON FOR ADMISSION: # Right hip fracture # Right wrist fracture # Postop right hip # Casting right wrist # Gait decline- acute on chronic # Gait decline - chronic issues related to the right knee # Right knee pain and weakness # Postop anemia # Postop incision # Postop pain # Anticoagulation needs - currently on Xarelto # Constipation - complicated by pain medications and inactivity HOSPITAL COURSE: While in swing bed, Ms. Lund received continuous senior living care and supervision with emphasis on her wound, her pain control, her general stability. teleservices representative worked with her throughout to help her with her appointments, her travel and even had a home visit the day prior to her being discharged. PT worked with her to take her from a near non ambulatory state to being able to walk fairly well with a modified walker. Dietary worked with her to assure her of nutrition, improve her low proteins found on admission. She did have to go to the [facility] when her splint on the right wrist became too loose; fortunately, it was caught and replaced in time to only have minor abrasions around some of her fingertips. Eventually her galindo were removed and unfortunately despite wanting to do an MRI of her knee, she still needs some time frame apparently on [place]'s standard and from the [facility] standards, they didn't want to do it in the immediate perioperative period so PT evaluated her for need for brace and did not think her knee was unstable enough to require such. She battled constipation using various products and I am sure it was contributed by her being on iron and pain medications. Her initial hemoglobin started at 10 and dropped into 9.5 range and then rebound to 11.1 by discharge; her initial albumin was 2.5 and improved to normal by discharge and remainder of chemistries serially some five times were all otherwise in normal range. Her anticoagulation was Xarelto. She is being transitioned now to the outpatient arena. DISCHARGE ASSESSMENT/PROBLEM LIST (CHANGED FROM ADMISSION): # Remote right hip fracture # Remote right wrist fracture # Postop right hip # Splinting right wrist # Gait decline - acute on chronic # Gait decline - chronic issues related to the right knee # Right knee pain and weakness # Anemia - postop affected and iron replaced # Postop incision - healing # Postop pain - improving # Anticoagulation - Xarelto (indication postop right hip) # Constipation - postop affected by pain medications and iron # Malnutrition - low proteins postop # Superficial ulcers - in and around the fingers and thumbs from her splint - resolving PLAN: 1. Discharge 2. Medications: a) Norvasc 5 mg one a day b) Zyrtec 10 mg one a day c) Antivert 25 mg b.i.d. d) Metoprolol 50 mg a day e) Mirapex 0.5 mg each morning and 3 mg at bedtime f) Tramadol 50 mg every 6 hours as needed g) Valium 5 mg one every six hours as needed h) Ferrous Sulfate 325 mg one a day i) Percocet 5 one to two every four hours as needed for pain j) Xarelto 10 mg one a day #10 no refill 3. Activity a) Gradually increase as able b) Walk with walker c) Wound care as before d) No driving 4. Followup: a) Dr. Mendoza in one month b) Dr. Arrington as he directed PROGNOSIS: Good CONDITION: Stable, improved. [facility]
== END 2016-09-01 15:05 | disposition home or self-care (01) | DRG 560 ==
LOC: OBSVTOIN 20:38 → MEDSURG A 20:38 → UNDOADMOB 20:38
PROVIDERS: ADMIT Family Medicine; ATTEND Family Medicine
DX: S72.001D Fracture of unspecified part of neck of right femur, subsequent encounter for closed fracture with routine healing (principal); D62 Acute posthemorrhagic anemia; E46 Unspecified protein-calorie malnutrition; S62.101D Fracture of unspecified carpal bone, right wrist, subsequent encounter for fracture with routine healing; R26.2 Difficulty in walking, not elsewhere classified; M25.561 Pain in right knee; M25.361 Other instability, right knee; M62.81 Muscle weakness (generalized); K59.00 Constipation, unspecified; S60.311A Abrasion of right thumb, initial encounter; S60.410A Abrasion of right index finger, initial encounter; S60.416A Abrasion of right little finger, initial encounter; S60.412A Abrasion of right middle finger, initial encounter; S60.414A Abrasion of right ring finger, initial encounter; T75.89XA Other specified effects of external causes, initial encounter; W19.XXXD Unspecified fall, subsequent encounter; Z98.890 Other specified postprocedural states
CPT/HCPCS: 36415; 80053; 85025; 87081; 97802

== ENCOUNTER 2016-11-03 09:00 | Outpatient (RCR) ==
--- NOTE | 2016-10-27 09:45 | RS.OTEVAL ---
Subjective Date of Note: 10/27/16 Visit #: 1 Date of Evaluation: 10/27/16 Payer Source: Insurance Date of Onset/Injury/Change in Status: 08/14/16 Surgery Performed?: No Treatment Diagnosis: Left distal head of radius Treatment Side (optional): Right *Precautions: Walks with quad cane and has weakness Prior Level of Function.....Patient was independent with: ADL's, Self Care, Work /Vocation, Caregiving, Ambulation/Mobility, Community Integration/Access History of Condition/Mechanism of Injury: Patient fell at a ballgame at school. Patient fractured her RUE wrist. Functional Limitations: Sleep, Self Care, ADL's, Reaching, Pushing, Pulling, Lifting, Carrying, Standing, Bending, Squatting, Ambulation Current Complaints/Gains: Patient has numbness in volar right hand digits and thumb. Patient has weakness of RUE wrist and pain in wrist. Medical History Medical History: Hypertension, Arthritis Medical History Comments:: Restless legs, HTN, ARthritis, Limes disease, Hip with dhaval and pinning. Surgical History Comments:: Pt fell and fractured her RUE wrist, and Right hip. Patient's Goals: To be able to go back to work in February when school starts. Pain Assessment - Pain Description Pain Description: Tightness, Aching Pain Location: RUE wrist Pain Description: tightness Current Pain Intensity: 4 Worst Pain Intensity: 8 Other comments regarding pain:: pain decreased after shucking of RUE wrist. Functional Outcome Measures UE Functional Index: 51 - G Codes & Severity Modifier G Codes: Current level CK 51 %. Goal level is CH Source of G Code score: Carrying, moving, and Handling Observation - Observation Posture: Forward Head Handedness: Right Girth Measurement Upper: Edema of wrist at styloid process is RUE 18.4 CM , LUE 18.1 CM Shoulder ROM: Bilaterally WFL's Shoulder Muscle Strength: Left WFL's - Left Shoulder Strength Left Shoulder Flexion: 4 Good Left Shoulder Extension: 4 Good Left Shoulder Abduction: 4 Good Left Shoulder Adduction: 4 Good Left Shoulder External Rotation: 4 Good Left Shoulder Internal Rotation: 4 Good - Right Shoulder Strength Right Shoulder Flexion: 4- Good- Right Shoulder Extension: 4- Good- Right Shoulder Abduction: 4- Good- Right Shoulder Adduction: 4- Good- Right Shoulder External Rotation: 4- Good- Right Shoulder Internal Rotation: 4- Good- - Special Tests Shoulder Empty Can (Supraspinatus) Test: Negative Left Elbow ROM: Bilaterally WFL's Elbow Muscle Strength: Left WFL's - Left Elbow Strength Left Elbow Extension: 4+ Good + Left Elbow Flexion: 4+ Good + Left Forearm Pronation: 4+ Good + Left Forearm Supination: 4+ Good + - Right Elbow Strength Right Elbow Extension: 4- Good- Right Elbow Flexion: 4- Good- Right Forearm Pronation: 4- Good- Right Forearm Supination: 4- Good- Wrist ROM: Left WFL's Wrist Muscle Strength: Left WFL's - Right Wrist/Hand ROM Right Wrist Extension: 40 Right Wrist Flexion: 50 Right Wrist Radial Deviation: 15 Right Wrist Ulnar Deviation: 15 Right Forearm Pronation: 90 Right Forearm Supination: 90 Right Wrist ROM Testing Limitations: Soft Tissue Tightness, Pain Right Hand ROM: Pt can make a full fist but not consistantly. - Left Wrist Strength Left Wrist Extension: 4+ Good + Left Wrist Flexion: 4+ Good + Left Wrist Radial Deviation: 4+ Good + Left Wrist Ulnar Deviation: 4+ Good + Left Forearm Pronation: 4+ Good + Left Forearm Supination: 4+ Good + - Right Wrist Strength Right Wrist Extension: 3- Fair- Right Wrist Flexion: 3- Fair- Right Wrist Radial Deviation: 3- Fair- Right Wrist Ulnar Deviation: 3- Fair- - Ornamental Iron Erector Strength Left Ornamental Iron Erector Strength: 45 Right Ornamental Iron Erector Strength: 6 Ornamental Iron Erector Strength Left Hand Ornamental Iron Erector Strength: 45 Right Hand Ornamental Iron Erector Strength: 6 Dynamometer Testing Position: 2nd Position Palpation Palpation Findings: Tenderness, Trigger Point, Muscle Guarding Comments:: RUE shoulder Sensation Right Upper Extremity: Impaired Left Upper Extremity: Intact/Normal Sensation Description: Tingling Comments: Right thumb and volar tips of digits. Interventions - Exercise/Activities Exercise/Activities/Manual Therapy: Theraputty exercises, wrist flexion/ extension with a can of soup at home, wrist extension stretch on table top. HOME EXERCISE PROGRAM: green theraputty: full fist, adduction of digits, MP flexion, pushing down on table top on putty,. weight bearing on table top to increase RUE wrist extension. contrast bath - Other Treatment/Services Other Services/Treatments: Contrast Bath Treatment Details: OT to complete US, or Estim to RUE shoulder to decrease tightness and numbness of digits. US to wrist if PRN. - Objective Findings Objective Findings:: Muscle weakness, tenderness in RUE shoulder, joint stiffness in shoulder and wrist/hand. - Charges Total Direct Minutes: 60 Total Treatment Time: 40 Procedures billed for this date of service:: Jay [place] yu, [place] x 2 Assessment Patient Education: Education of diagnosis, Body/Joint mechanics, Home Exercise Program, Education of Plan of Care Rehab Potential: Good Short Term Goals Goal #1: Patient to increase RUE wrist extension to 0-55 deg.. Goal to be met by: 11/10/16 Goal #2: Pt to increase RUE wrist flexion to be 0-55. Goal to be met by: 11/10/16 Goal #3: Pt to decrease RUE pain to 0-2. Goal to be met by: 11/10/16 Goal #4: PT to increase strengt of RUE to 4/5 Goal to be met by: 11/10/16 Halfway Goals Goal #1: Pt to increase RUE wrist extension to be WFL. Goal to be met by: 12/01/16 Goal #2: Pt to increase RUE wrist flexion to be WFL. Goal to be met by: 12/01/16 Goal #3: Pt to decrease RUE pain to 0-2. Goal to be met by: 12/01/16 Goal #4: PT to increase strengt of RUE to 4+/5. Goal to be met by: 12/01/16 Plan - Treatment to be provided Procedures: Therapeutic Exercises, Therapeutic Activity Modalities: Electrical Stimulation, Ultrasound/Phonophoresis, Class IV Laser, Cryotherapy, Hot Packs - Treatment Plan Frequency: 3 X week Duration: 6 weeks ORDER # VISITS AND/OR THROUGH DATE: 12/01/16 - Treatment Code (1) Joint stiffness Comments: M25.60 joint stiffness of RUE. (2) Wrist pain, right Comments: M25.531 (3) Muscle weakness Comments: M62.81
--- NOTE | 2016-10-30 10:22 | RS.OTDNOTE ---
Subjective Date of Note: 10/30/16 Visit #: 2 Date of Evaluation: 10/27/16 Payer Source: Insurance Date of Onset/Injury/Change in Status: 08/14/16 Surgery Performed?: No Treatment Diagnosis: Left distal head of radius Treatment Side (optional): Right *Precautions: Walks with quad cane and has weakness Prior Level of Function.....Patient was independent with: ADL's, Self Care, Work /Vocation, Caregiving, Ambulation/Mobility, Community Integration/Access History of Condition/Mechanism of Injury: Patient fell at a ballgame at school. Patient fractured her RUE wrist. Functional Limitations: Sleep, Self Care, ADL's, Reaching, Pushing, Pulling, Lifting, Carrying, Standing, Bending, Squatting, Ambulation Current Complaints/Gains: Pt states pain at 2/10 this am but at times reaches 7- 8 with performing housework or outside tasks. States she has been told she does not have to wear a splint but at times puts it on for comfort/protection. States MD did not give her a weight limit and is to use her judgement on activity/pain. Pain Assessment - Pain Description Pain Description: Tightness, Aching Pain Location: RUE wrist Pain Description: tightness Current Pain Intensity: 2 Worst Pain Intensity: 2 Modalities - Treatment Modality: Ultrasound Parameters/Method Applied: .04w/cm2 x 7 mins to volar and 7 mins to dorsal wrist including thenar eminence of palm Patient Position: Sitting - Treatment Modality: Class 4 Laser Parameters/Method Applied: Chronic pain protocol - Hot Pack/Cryotherapy Treatment: Cryotherapy (CP x 10 mins) Interventions - Exercise/Activities Exercise/Activities/Manual Therapy: Pt performed TE utilizing graded yellow-red- green digiflex, wrist python java developer, 1# hand weight for wrist flexion/extension and pro/supination 04/08 each. Pt also ed and performed yellow t-band ex with HEP instructions. HOME EXERCISE PROGRAM: green theraputty: full fist, adduction of digits, MP flexion, pushing down on table top on putty,. weight bearing on table top to increase RUE wrist extension. contrast bath - Objective Findings Objective Findings:: Muscle weakness, tenderness in RUE shoulder, joint stiffness in shoulder and wrist/hand. - Charges Total Direct Minutes: 34 Total Treatment Time: 45 Procedures billed for this date of service:: CP US EX Assessment Patient Education: Education of diagnosis, Body/Joint mechanics, Home Exercise Program, Home Safety, Activity Modification, Education of Plan of Care Short Term Goals Goal #1: Patient to increase RUE wrist extension to 0-55 deg.. Goal to be met by: 11/10/16 Progress towards goal: Progressing Goal #2: Pt to increase RUE wrist flexion to be 0-55. Goal to be met by: 11/10/16 Progress towards goal: Progressing Goal #3: Pt to decrease RUE pain to 0-2. Goal to be met by: 11/10/16 Progress towards goal: Progressing Goal #4: PT to increase strengt of RUE to 4/5 Goal to be met by: 11/10/16 Progress towards goal: Progressing Shelter Goals Goal #1: Pt to increase RUE wrist extension to be WFL. Goal to be met by: 12/01/16 Progress towards goal: Progressing Goal #2: Pt to increase RUE wrist flexion to be WFL. Goal to be met by: 12/01/16 Progress towards goal: Progressing Goal #3: Pt to decrease RUE pain to 0-2. Goal to be met by: 12/01/16 Progress towards goal: Progressing Goal #4: PT to increase strengt of RUE to 4+/5. Goal to be met by: 12/01/16 Progress towards goal: Progressing Plan PLAN OF CARE EXPIRES ON:: 12/01/16 ORDER # VISITS AND/OR THROUGH DATE: 12/01/16 PLAN: Continue Plan of Care Frequency: 3 X week Duration: 4 weeks
--- NOTE | 2016-11-01 13:16 | RS.OTDNOTE ---
Subjective Date of Note: 11/01/16 Visit #: 3 Date of Evaluation: 10/27/16 Payer Source: Insurance Date of Onset/Injury/Change in Status: 08/14/16 Surgery Performed?: No Treatment Diagnosis: Left distal head of radius Treatment Side (optional): Right *Precautions: Walks with quad cane and has weakness Prior Level of Function.....Patient was independent with: ADL's, Self Care, Work /Vocation, Caregiving, Ambulation/Mobility, Community Integration/Access History of Condition/Mechanism of Injury: Patient fell at a ballgame at school. Patient fractured her RUE wrist. Functional Limitations: Sleep, Self Care, ADL's, Reaching, Pushing, Pulling, Lifting, Carrying, Standing, Bending, Squatting, Ambulation Current Complaints/Gains: Pt states she switched from a RW to her SC in the last few wks. States she has tried a cple different heights for comfort. States she has one leg shorter than the other and is ed on built up shoes. Pain Assessment - Pain Description Pain Description: Tightness, Aching Pain Location: RUE wrist Pain Description: tightness Modalities - Hot Pack/Cryotherapy Treatment: Cryotherapy ((L) wrist CP applied x 10 mins following TE) Interventions - Exercise/Activities Exercise/Activities/Manual Therapy: Pt performed TE utilizing graded yellow-red- green digiflex, wrist transplant registered nurse, 1#-2# hand weight for wrist flexion/extension and pro/supination 10/ each. Pt also ed and performed red t-band/2# ex/RTC ex 's with HEP instructions. Bodyblade performed x 1+ mins x 1. HOME EXERCISE PROGRAM: green theraputty: full fist, adduction of digits, MP flexion, pushing down on table top on putty,. weight bearing on table top to increase RUE wrist extension. contrast bath - Objective Findings Objective Findings:: Muscle weakness, tenderness in RUE shoulder, joint stiffness in shoulder and wrist/hand. - Charges Total Direct Minutes: 35 Total Treatment Time: 45 Procedures billed for this date of service:: CP EX2 Assessment Patient Education: Education of diagnosis, Body/Joint mechanics, Home Exercise Program, Home Safety, Activity Modification, Education of Plan of Care Patient demonstrates compliance with HEP?: Yes Short Term Goals Goal #1: Patient to increase RUE wrist extension to 0-55 deg.. Goal to be met by: 11/10/16 Progress towards goal: Partially Met Goal #2: Pt to increase RUE wrist flexion to be 0-55. Goal to be met by: 11/10/16 Progress towards goal: Partially Met Goal #3: Pt to decrease RUE pain to 0-2. Goal to be met by: 11/10/16 Progress towards goal: Progressing Goal #4: PT to increase strengt of RUE to 4/5 Goal to be met by: 11/10/16 Progress towards goal: Progressing Care Home Goals Goal #1: Pt to increase RUE wrist extension to be WFL. Goal to be met by: 12/01/16 Progress towards goal: Progressing Goal #2: Pt to increase RUE wrist flexion to be WFL. Goal to be met by: 12/01/16 Progress towards goal: Progressing Goal #3: Pt to decrease RUE pain to 0-2. Goal to be met by: 12/01/16 Progress towards goal: Progressing Goal #4: PT to increase strengt of RUE to 4+/5. Goal to be met by: 12/01/16 Progress towards goal: Progressing Plan PLAN OF CARE EXPIRES ON:: 12/01/16 ORDER # VISITS AND/OR THROUGH DATE: 12/01/16 PLAN: Continue Plan of Care Frequency: 3 X week Duration: 6 weeks
--- NOTE | 2016-11-03 14:46 | RS.OTDNOTE ---
Subjective Date of Note: 11/03/16 Visit #: 4 Date of Evaluation: 10/27/16 Payer Source: Insurance Date of Onset/Injury/Change in Status: 08/14/16 Surgery Performed?: No Treatment Diagnosis: Left distal head of radius Treatment Side (optional): Right *Precautions: Walks with quad cane and has weakness Prior Level of Function.....Patient was independent with: ADL's, Self Care, Work /Vocation, Caregiving, Ambulation/Mobility, Community Integration/Access History of Condition/Mechanism of Injury: Patient fell at a ballgame at school. Patient fractured her RUE wrist. Functional Limitations: Sleep, Self Care, ADL's, Reaching, Pushing, Pulling, Lifting, Carrying, Standing, Bending, Squatting, Ambulation Current Complaints/Gains: Pt with no new c/o's. States good compliance with HEP including putty ex's. Pain Assessment - Pain Description Pain Description: Tightness, Aching Pain Location: RUE wrist Pain Description: tightness Current Pain Intensity: 2 Modalities - Treatment Modality: Ultrasound Parameters/Method Applied: 1.5w/cm2 x 10 mins to ulna and palm of hand Patient Position: Sitting - Hot Pack/Cryotherapy Treatment: Hot Pack (HP to (L) shoulder) Interventions - Exercise/Activities Exercise/Activities/Manual Therapy: Pt performed TE utilizing graded yellow-red- green digiflex, wrist senior animator,-2#-3# hand weight for wrist flexion/extension and pro/supination 10/2 each. Pt also ed and performed red t-band/3# ex/RTC ex 's with HEP instructions. Bodyblade performed x 1+ mins x 1 along with wrist roll-up x 4 with 2# resist. HOME EXERCISE PROGRAM: green theraputty: full fist, adduction of digits, MP flexion, pushing down on table top on putty,. weight bearing on table top to increase RUE wrist extension. contrast bath - Objective Findings Objective Findings:: Muscle weakness, tenderness in RUE shoulder, joint stiffness in shoulder and wrist/hand. - Charges Total Direct Minutes: 35 Total Treatment Time: 50 Procedures billed for this date of service:: HP US EX Assessment Patient Education: Education of diagnosis, Body/Joint mechanics, Home Exercise Program, Home Safety, Activity Modification, Education of Plan of Care Patient demonstrates compliance with HEP?: Yes Short Term Goals Goal #1: Patient to increase RUE wrist extension to 0-55 deg.. Goal to be met by: 11/10/16 Progress towards goal: Partially Met Comments: GE Goal #2: Pt to increase RUE wrist flexion to be 0-55. Goal to be met by: 11/10/16 Progress towards goal: Partially Met Comments: GE Goal #3: Pt to decrease RUE pain to 0-2. Goal to be met by: 11/10/16 Progress towards goal: Partially Met Goal #4: PT to increase strengt of RUE to 4/5 Goal to be met by: 11/10/16 Progress towards goal: Partially Met Fine Grade Bulldozer Operator Goals Goal #1: Pt to increase RUE wrist extension to be WFL. Goal to be met by: 12/01/16 Progress towards goal: Progressing Goal #2: Pt to increase RUE wrist flexion to be WFL. Goal to be met by: 12/01/16 Progress towards goal: Progressing Goal #3: Pt to decrease RUE pain to 0-2. Goal to be met by: 12/01/16 Progress towards goal: Progressing Goal #4: PT to increase strengt of RUE to 4+/5. Goal to be met by: 12/01/16 Progress towards goal: Progressing Plan PLAN OF CARE EXPIRES ON:: 12/01/16 ORDER # VISITS AND/OR THROUGH DATE: 12/01/16 PLAN: Continue Plan of Care Frequency: 3 X week Duration: 4 weeks
== END 2016-11-05 ==
PROVIDERS: ATTEND Orthopaedic Surgery
DX: S52.551D Other extraarticular fracture of lower end of right radius, subsequent encounter for closed fracture with routine healing (principal)

== ENCOUNTER 2016-11-28 09:00 | Outpatient (RCR) ==
--- NOTE | 2016-11-07 16:12 | RS.OTDNOTE ---
Subjective Date of Note: 11/07/16 Visit #: 5 Date of Evaluation: 10/27/16 Payer Source: Insurance Date of Onset/Injury/Change in Status: 08/14/16 Surgery Performed?: No Treatment Diagnosis: Left distal head of radius Treatment Side (optional): Right *Precautions: Walks with quad cane and has weakness Prior Level of Function.....Patient was independent with: ADL's, Self Care, Work /Vocation, Caregiving, Ambulation/Mobility, Community Integration/Access History of Condition/Mechanism of Injury: Patient fell at a ballgame at school. Patient fractured her RUE wrist. Functional Limitations: Sleep, Self Care, ADL's, Reaching, Pushing, Pulling, Lifting, Carrying, Standing, Bending, Squatting, Ambulation Pain Assessment - Pain Description Pain Location: RUE wrist Pain Description: tightness Other comments regarding pain:: patient stated that she really wasnt having to much pain today. that since the rain has moved out that it feels pretty good. A little tightness is all she notices. Modalities - Treatment Modality: Ultrasound Parameters/Method Applied: u/s performed to right wrist. for 8mins Patient Position: Sitting - Hot Pack/Cryotherapy Treatment: Hot Pack, Cryotherapy Comments:: MHP applied to right shoulder Interventions - Exercise/Activities Exercise/Activities/Manual Therapy: Pt performed TE utilizing graded yellow-red- green digiflex, wrist security control center operator,-2#-3# hand weight for wrist flexion/extension and pro/supination 10/2 each. Pt also ed and performed red t-band/3# ex/RTC ex 's with HEP instructions. Bodyblade performed x 1+ mins x 1 along with wrist roll-up x 4 with 2# resist. HOME EXERCISE PROGRAM: green theraputty: full fist, adduction of digits, MP flexion, pushing down on table top on putty,. weight bearing on table top to increase RUE wrist extension. contrast bath - Objective Findings Objective Findings:: Muscle weakness, tenderness in RUE shoulder, joint stiffness in shoulder and wrist/hand. - Charges Total Direct Minutes: 55 Total Treatment Time: 55 Procedures billed for this date of service:: ex x2, u/s, hp Assessment Patient Education: Home Exercise Program Problems/Comments: patient stated that she still performs HEP with red theraputty and is doing well. Patient demonstrates compliance with HEP?: Yes Short Term Goals Goal #1: Patient to increase RUE wrist extension to 0-55 deg.. Goal to be met by: 11/10/16 Progress towards goal: Partially Met Goal #2: Pt to increase RUE wrist flexion to be 0-55. Goal to be met by: 11/10/16 Progress towards goal: Partially Met Goal #3: Pt to decrease RUE pain to 0-2. Goal to be met by: 11/10/16 Progress towards goal: Partially Met Goal #4: PT to increase strengt of RUE to 4/5 Goal to be met by: 11/10/16 Progress towards goal: Partially Met Prison Goals Goal #1: Pt to increase RUE wrist extension to be WFL. Goal to be met by: 12/01/16 Progress towards goal: Progressing Goal #2: Pt to increase RUE wrist flexion to be WFL. Goal to be met by: 12/01/16 Progress towards goal: Progressing Goal #3: Pt to decrease RUE pain to 0-2. Goal to be met by: 12/01/16 Progress towards goal: Progressing Goal #4: PT to increase strengt of RUE to 4+/5. Goal to be met by: 12/01/16 Progress towards goal: Progressing Plan PLAN OF CARE EXPIRES ON:: 12/01/16 ORDER # VISITS AND/OR THROUGH DATE: 12/01/16 PLAN: Continue Plan of Care Frequency: 3 X week Duration: 6 weeks
--- NOTE | 2016-11-09 11:12 | RS.OTDNOTE ---
Subjective Date of Note: 11/09/16 (I'm a little sore today) Visit #: 6 Date of Evaluation: 10/27/16 Payer Source: Insurance Date of Onset/Injury/Change in Status: 08/14/16 Surgery Performed?: No Treatment Diagnosis: Left distal head of radius Treatment Side (optional): Right *Precautions: Walks with quad cane and has weakness Prior Level of Function.....Patient was independent with: ADL's, Self Care, Work /Vocation, Caregiving, Ambulation/Mobility, Community Integration/Access History of Condition/Mechanism of Injury: Patient fell at a ballgame at school. Patient fractured her RUE wrist. Functional Limitations: Sleep, Self Care, ADL's, Reaching, Pushing, Pulling, Lifting, Carrying, Standing, Bending, Squatting, Ambulation Pain Assessment - Pain Description Pain Description: Aching Pain Location: RUE wrist Pain Description: a little achy today Current Pain Intensity: 1-2/10 Modalities - Treatment Parameters/Method Applied: 1.2w/cm2 x8mins to L wirst to decrease pain Patient Position: Sitting - Hot Pack/Cryotherapy Treatment: Hot Pack Interventions - Exercise/Activities Exercise/Activities/Manual Therapy: Pt performed TE utilizing graded yellow-red- green digiflex, wrist tank builder and erector,-2#-3# hand weight for wrist flexion/extension and pro/supination 10/2 each. Pt also ed and performed red t-band/3# ex/RTC ex 's with HEP instructions. Bodyblade performed x 1+ mins x 1 along with wrist roll-up x 4 with 2# resist. HOME EXERCISE PROGRAM: green theraputty: full fist, adduction of digits, MP flexion, pushing down on table top on putty,. weight bearing on table top to increase RUE wrist extension. contrast bath - Objective Findings Objective Findings:: Muscle weakness, tenderness in RUE shoulder, joint stiffness in shoulder and wrist/hand. - Charges Total Direct Minutes: 60 Total Treatment Time: 60 Procedures billed for this date of service:: u/s, hp, TEx2 Assessment Patient Education: Home Exercise Program Problems/Comments: Patient states that she performs her HEP with good understanding Patient demonstrates compliance with HEP?: Yes Short Term Goals Goal #1: Patient to increase RUE wrist extension to 0-55 deg.. Goal to be met by: 11/10/16 Progress towards goal: Partially Met Goal #2: Pt to increase RUE wrist flexion to be 0-55. Goal to be met by: 11/10/16 Progress towards goal: Partially Met Goal #3: Pt to decrease RUE pain to 0-2. Goal to be met by: 11/10/16 Progress towards goal: Partially Met Goal #4: PT to increase strengt of RUE to 4/5 Goal to be met by: 11/10/16 Progress towards goal: Partially Met Magnetic Tape Typewriter Operator Goals Goal #1: Pt to increase RUE wrist extension to be WFL. Goal to be met by: 12/01/16 Progress towards goal: Progressing Goal #2: Pt to increase RUE wrist flexion to be WFL. Goal to be met by: 12/01/16 Progress towards goal: Progressing Goal #3: Pt to decrease RUE pain to 0-2. Goal to be met by: 12/01/16 Progress towards goal: Progressing Goal #4: PT to increase strengt of RUE to 4+/5. Goal to be met by: 12/01/16 Progress towards goal: Progressing Plan PLAN OF CARE EXPIRES ON:: 12/01/16 ORDER # VISITS AND/OR THROUGH DATE: 12/01/16 PLAN: Continue Plan of Care Frequency: 3 X week Duration: 6 weeks
--- NOTE | 2016-11-13 09:52 | RS.OTDNOTE ---
Subjective Date of Note: 11/13/16 Visit #: 7 Date of Evaluation: 10/27/16 Payer Source: Insurance Date of Onset/Injury/Change in Status: 08/14/16 Surgery Performed?: No Treatment Diagnosis: Left distal head of radius Treatment Side (optional): Right *Precautions: Walks with quad cane and has weakness Prior Level of Function.....Patient was independent with: ADL's, Self Care, Work /Vocation, Caregiving, Ambulation/Mobility, Community Integration/Access History of Condition/Mechanism of Injury: Patient fell at a ballgame at school. Patient fractured her RUE wrist. Functional Limitations: Sleep, Self Care, ADL's, Reaching, Pushing, Pulling, Lifting, Carrying, Standing, Bending, Squatting, Ambulation Current Complaints/Gains: States good compliance with HEP. States pain remains low on nice days and increases with rainy weather. Pain Assessment - Pain Description Pain Description: Sharp, Aching Pain Location: RUE wrist Pain Description: tightness Current Pain Intensity: 1 Worst Pain Intensity: 6 Modalities - Treatment Modality: Ultrasound Parameters/Method Applied: 1.5w/cm2 x 10 mins Treatment Area: wrist - Hot Pack/Cryotherapy Treatment: Hot Pack, Cryotherapy Interventions - Exercise/Activities Exercise/Activities/Manual Therapy: Pt performed TE utilizing graded red-green blue digiflex, wrist field sales executive,-4# and 5# hand weight for wrist flexion/ extension and pro/supination 15/2 each. Pt also ed and performed red t-band/5 # ex/RTC ex's with HEP instructions. Bodyblade performed x 1+ mins x 1 along with wrist roll-up x 4 with 3# resist. Weighted ball catch/throw also performed. HOME EXERCISE PROGRAM: green theraputty: full fist, adduction of digits, MP flexion, pushing down on table top on putty,. weight bearing on table top to increase RUE wrist extension. contrast bath - Objective Findings Objective Findings:: Muscle weakness, tenderness in RUE shoulder, joint stiffness in shoulder and wrist/hand. - Charges Total Direct Minutes: 45 Total Treatment Time: 65 Procedures billed for this date of service:: CP US EX2 Assessment Patient Education: Education of diagnosis, Body/Joint mechanics, Home Exercise Program, Home Safety, Activity Modification, Education of Plan of Care Patient demonstrates compliance with HEP?: Yes Short Term Goals Goal #1: Patient to increase RUE wrist extension to 0-55 deg.. Goal to be met by: 11/10/16 Progress towards goal: Met Goal #2: Pt to increase RUE wrist flexion to be 0-55. Goal to be met by: 11/10/16 Progress towards goal: Met Goal #3: Pt to decrease RUE pain to 0-2. Goal to be met by: 11/10/16 Progress towards goal: Partially Met Goal #4: PT to increase strengt of RUE to 4/5 Goal to be met by: 11/10/16 Progress towards goal: Met Longterm Goals Goal #1: Pt to increase RUE wrist extension to be WFL. Goal to be met by: 12/01/16 Progress towards goal: Partially Met Goal #2: Pt to increase RUE wrist flexion to be WFL. Goal to be met by: 12/01/16 Progress towards goal: Partially Met Goal #3: Pt to decrease RUE pain to 0-2. Goal to be met by: 12/01/16 Progress towards goal: Partially Met Goal #4: PT to increase strengt of RUE to 4+/5. Goal to be met by: 12/01/16 Progress towards goal: Progressing Plan PLAN OF CARE EXPIRES ON:: 12/01/16 ORDER # VISITS AND/OR THROUGH DATE: 12/01/16 PLAN: Progress Exercises Frequency: 2 X week Duration: 3 weeks
--- NOTE | 2016-11-15 11:06 | RS.OTDNOTE ---
Subjective Date of Note: 11/15/16 Visit #: 8 Date of Evaluation: 10/27/16 Payer Source: Insurance Date of Onset/Injury/Change in Status: 08/14/16 Surgery Performed?: No Treatment Diagnosis: Left distal head of radius Treatment Side (optional): Right *Precautions: Walks with quad cane and has weakness Prior Level of Function.....Patient was independent with: ADL's, Self Care, Work /Vocation, Caregiving, Ambulation/Mobility, Community Integration/Access History of Condition/Mechanism of Injury: Patient fell at a ballgame at school. Patient fractured her RUE wrist. Functional Limitations: Carrying Current Complaints/Gains: Pt agrees that strength is returning well. States good compliance with HEP. Agreeable to decrease to tx x 2/days a wk. Pt also states c/o stiffness-arthritis Pain Assessment - Pain Description Pain Description: Sharp, Aching Pain Location: RUE wrist Pain Description: tightness Current Pain Intensity: 1 Worst Pain Intensity: 2-3 Modalities - Treatment Modality: Ultrasound Parameters/Method Applied: .04w/cm2 x 10 mins Treatment Area: wrist Patient Position: Sitting - Hot Pack/Cryotherapy Treatment: Hot Pack (HP x 15 mins wrist/shoulder) Interventions - Exercise/Activities Exercise/Activities/Manual Therapy: Pt performed TE utilizing graded red-green blue digiflex, wrist filament welder, 5# hand weight for wrist flexion/extension and pro/supination 15/2 each. Pt also ed and performed red t-band/5# ex/RTC ex's with HEP instructions. Bodyblade performed x 1+ mins x 1 along with wrist roll- up x 4 with 3# resist. Weighted ball catch/throw also performed along with medium strength hand gripper. Green t-band/5# hand weight RTC series ex perfomed also 15/2. HOME EXERCISE PROGRAM: green theraputty: full fist, adduction of digits, MP flexion, pushing down on table top on putty,. weight bearing on table top to increase RUE wrist extension. contrast bath - Objective Findings Objective Findings:: Muscle weakness, tenderness in RUE shoulder, joint stiffness in shoulder and wrist/hand. - Charges Total Direct Minutes: 45 Total Treatment Time: 60 Procedures billed for this date of service:: HP US EX2 Assessment Patient Education: Education of diagnosis, Body/Joint mechanics, Home Exercise Program, Home Safety, Activity Modification, Education of Plan of Care Patient demonstrates compliance with HEP?: Yes Short Term Goals Goal #1: Patient to increase RUE wrist extension to 0-55 deg.. Goal to be met by: 11/10/16 Progress towards goal: Met Goal #2: Pt to increase RUE wrist flexion to be 0-55. Goal to be met by: 11/10/16 Progress towards goal: Met Goal #3: Pt to decrease RUE pain to 0-2. Goal to be met by: 11/10/16 Progress towards goal: Partially Met Goal #4: PT to increase strengt of RUE to 4/5 Goal to be met by: 11/10/16 Progress towards goal: Met Former Hand Goals Goal #1: Pt to increase RUE wrist extension to be WFL. Goal to be met by: 12/01/16 Progress towards goal: Partially Met Goal #2: Pt to increase RUE wrist flexion to be WFL. Goal to be met by: 12/01/16 Progress towards goal: Partially Met Goal #3: Pt to decrease RUE pain to 0-2. Goal to be met by: 12/01/16 Progress towards goal: Partially Met Goal #4: PT to increase strengt of RUE to 4+/5. Goal to be met by: 12/01/16 Progress towards goal: Progressing Plan PLAN OF CARE EXPIRES ON:: 12/01/16 ORDER # VISITS AND/OR THROUGH DATE: 12/01/16 PLAN: Progress Exercises Frequency: 2 X week Duration: 1 week
--- NOTE | 2016-11-21 15:18 | RS.OTDNOTE ---
Subjective Date of Note: 11/21/16 Visit #: 9 Date of Evaluation: 10/27/16 Payer Source: Insurance Date of Onset/Injury/Change in Status: 08/14/16 Surgery Performed?: No Treatment Diagnosis: Left distal head of radius Treatment Side (optional): Right *Precautions: Walks with quad cane and has weakness Prior Level of Function.....Patient was independent with: ADL's, Self Care, Work /Vocation, Caregiving, Ambulation/Mobility, Community Integration/Access History of Condition/Mechanism of Injury: Patient fell at a ballgame at school. Patient fractured her RUE wrist. 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 States pain remains 2/10 highest with activites. Pain Assessment - Pain Description Pain Description: Sharp, Dull, Aching Pain Location: RUE wrist Pain Description: tightness Current Pain Intensity: 1-2 Worst Pain Intensity: 2 Modalities - Treatment Modality: Ultrasound Parameters/Method Applied: 1.5w/cm2 x 10 mins Patient Position: Sitting - Hot Pack/Cryotherapy Treatment: Hot Pack (x 15 mins) Interventions - Exercise/Activities Exercise/Activities/Manual Therapy: Pt performed TE utilizing graded red-green blue digiflex, wrist bridge expert, 5# hand weight for wrist flexion/extension and pro/supination 15/2 each. Pt also ed and performed red t-band/5# ex/RTC ex's with HEP instructions. Bodyblade performed x 1+ mins x 1 along with wrist roll- up x 4 with 3# resist. Weighted ball catch/throw also performed along with medium strength hand gripper. Green t-band/5# hand weight RTC series ex perfomed also 15/2. HOME EXERCISE PROGRAM: green theraputty: full fist, adduction of digits, MP flexion, pushing down on table top on putty,. weight bearing on table top to increase RUE wrist extension. contrast bath - Objective Findings Objective Findings:: Muscle weakness, tenderness in RUE shoulder, joint stiffness in shoulder and wrist/hand. - Charges Total Direct Minutes: 45 Total Treatment Time: 60 Procedures billed for this date of service:: US EX2 Assessment Patient Education: Education of diagnosis, Body/Joint mechanics, Home Exercise Program, Home Safety, Activity Modification, Education of Plan of Care Patient demonstrates compliance with HEP?: Yes Short Term Goals Goal #1: Patient to increase RUE wrist extension to 0-55 deg.. Goal to be met by: 11/10/16 Progress towards goal: Met Goal #2: Pt to increase RUE wrist flexion to be 0-55. Goal to be met by: 11/10/16 Progress towards goal: Met Goal #3: Pt to decrease RUE pain to 0-2. Goal to be met by: 11/10/16 Progress towards goal: Met Goal #4: PT to increase strengt of RUE to 4/5 Goal to be met by: 11/10/16 Progress towards goal: Met Lead Teller Goals Goal #1: Pt to increase RUE wrist extension to be WFL. Goal to be met by: 12/01/16 Progress towards goal: Partially Met Goal #2: Pt to increase RUE wrist flexion to be WFL. Goal to be met by: 12/01/16 Progress towards goal: Partially Met Goal #3: Pt to decrease RUE pain to 0-2. Goal to be met by: 12/01/16 Progress towards goal: Met Goal #4: PT to increase strengt of RUE to 4+/5. Goal to be met by: 12/01/16 Progress towards goal: Partially Met Plan PLAN OF CARE EXPIRES ON:: 12/01/16 ORDER # VISITS AND/OR THROUGH DATE: 12/01/16 PLAN: Progress Exercises Frequency: 2 X week Duration: 2 weeks
--- NOTE | 2016-11-23 09:29 | RS.OTDNOTE ---
Subjective Date of Note: 11/23/16 Visit #: 10 Date of Evaluation: 10/27/16 Payer Source: Insurance Date of Onset/Injury/Change in Status: 08/14/16 Surgery Performed?: No Treatment Diagnosis: Left distal head of radius Treatment Side (optional): Right *Precautions: Walks with quad cane and has weakness Prior Level of Function.....Patient was independent with: ADL's, Self Care, Work /Vocation, Caregiving, Ambulation/Mobility, Community Integration/Access History of Condition/Mechanism of Injury: Patient fell at a ballgame at school. Patient fractured her RUE wrist. Functional Limitations: Carrying Current Complaints/Gains: Pt states ache this am. States HP vs CP for pain relief. Pain Assessment - Pain Description Pain Description: Sharp, Dull, Aching Pain Location: RUE wrist Pain Description: tightness Interventions - Exercise/Activities Exercise/Activities/Manual Therapy: Pt performed TE utilizing graded red-green blue digiflex, wrist plumbing engineer, 5# hand weight for wrist flexion/extension and pro/supination 15/2 each. Pt also ed and performed red t-band/5# ex/RTC ex's with HEP instructions. Bodyblade performed x 1+ mins x 1 along with wrist roll- up x 4 with 3# resist. Weighted ball catch/throw also performed along with medium strength hand gripper. Green t-band/5# hand weight RTC series ex perfomed also 15/2. HOME EXERCISE PROGRAM: green theraputty: full fist, adduction of digits, MP flexion, pushing down on table top on putty,. weight bearing on table top to increase RUE wrist extension. contrast bath - Objective Findings Objective Findings:: Muscle weakness, tenderness in RUE shoulder, joint stiffness in shoulder and wrist/hand. - Charges Total Direct Minutes: 32 Total Treatment Time: 32 Procedures billed for this date of service:: EX2 Assessment Patient Education: Education of diagnosis, Body/Joint mechanics, Home Exercise Program, Home Safety, Activity Modification, Education of Plan of Care Patient demonstrates compliance with HEP?: Yes Short Term Goals Goal #1: Patient to increase RUE wrist extension to 0-55 deg.. Goal to be met by: 11/10/16 Progress towards goal: Met Goal #2: Pt to increase RUE wrist flexion to be 0-55. Goal to be met by: 11/10/16 Progress towards goal: Met Goal #3: Pt to decrease RUE pain to 0-2. Goal to be met by: 11/10/16 Progress towards goal: Met Goal #4: PT to increase strengt of RUE to 4/5 Goal to be met by: 11/10/16 Progress towards goal: Met Detention Goals Goal #1: Pt to increase RUE wrist extension to be WFL. Goal to be met by: 12/01/16 Progress towards goal: Partially Met Goal #2: Pt to increase RUE wrist flexion to be WFL. Goal to be met by: 12/01/16 Progress towards goal: Partially Met Goal #3: Pt to decrease RUE pain to 0-2. Goal to be met by: 12/01/16 Progress towards goal: Met Goal #4: PT to increase strengt of RUE to 4+/5. Goal to be met by: 12/01/16 Progress towards goal: Partially Met Plan PLAN OF CARE EXPIRES ON:: 12/01/16 ORDER # VISITS AND/OR THROUGH DATE: 12/01/16 PLAN: Plan for Discharge Frequency: 2 X week Duration: 1 week
--- NOTE | 2016-11-23 14:22 | RS.OTDNOTE ---
Subjective Date of Note: 11/23/16 Visit #: 10 Date of Evaluation: 10/27/16 Payer Source: Insurance Date of Onset/Injury/Change in Status: 08/14/16 Surgery Performed?: No Treatment Diagnosis: Left distal head of radius Treatment Side (optional): Right *Precautions: Walks with quad cane and has weakness Prior Level of Function.....Patient was independent with: ADL's, Self Care, Work /Vocation, Caregiving, Ambulation/Mobility, Community Integration/Access History of Condition/Mechanism of Injury: Patient fell at a ballgame at school. Patient fractured her RUE wrist. Functional Limitations: Carrying Current Complaints/Gains: Pt continues stating pain is decreased and only has c/ o aches this date Pain Assessment - Pain Description Pain Description: Sharp, Dull, Aching Pain Location: RUE wrist Pain Description: tightness Current Pain Intensity: 1 Worst Pain Intensity: 2 Interventions - Exercise/Activities Exercise/Activities/Manual Therapy: Pt performed TE utilizing graded red-green blue digiflex, wrist real estate developer, 5# hand weight for wrist flexion/extension and pro/supination 15/2 each. Pt also ed and performed red t-band/5# ex/RTC ex's with HEP instructions. Bodyblade performed x 1+ mins x 1 along with wrist roll- up x 4 with 3# resist. Weighted ball catch/throw also performed along with medium strength hand gripper. Green t-band/5# hand weight RTC series ex perfomed also 15/2. HOME EXERCISE PROGRAM: green theraputty: full fist, adduction of digits, MP flexion, pushing down on table top on putty,. weight bearing on table top to increase RUE wrist extension. contrast bath - Objective Findings Objective Findings:: Muscle weakness, tenderness in RUE shoulder, joint stiffness in shoulder and wrist/hand. - Charges Total Direct Minutes: 35 Total Treatment Time: 35 Procedures billed for this date of service:: EX2 Assessment Patient Education: Education of diagnosis, Body/Joint mechanics, Home Exercise Program, Home Safety, Activity Modification, Education of Plan of Care Patient demonstrates compliance with HEP?: Yes Short Term Goals Goal #1: Patient to increase RUE wrist extension to 0-55 deg.. Goal to be met by: 11/10/16 Progress towards goal: Met Goal #2: Pt to increase RUE wrist flexion to be 0-55. Goal to be met by: 11/10/16 Progress towards goal: Met Goal #3: Pt to decrease RUE pain to 0-2. Goal to be met by: 11/10/16 Progress towards goal: Met Goal #4: PT to increase strengt of RUE to 4/5 Goal to be met by: 11/10/16 Progress towards goal: Met Longterm Goals Goal #1: Pt to increase RUE wrist extension to be WFL. Goal to be met by: 12/01/16 Progress towards goal: Partially Met Goal #2: Pt to increase RUE wrist flexion to be WFL. Goal to be met by: 12/01/16 Progress towards goal: Partially Met Goal #3: Pt to decrease RUE pain to 0-2. Goal to be met by: 12/01/16 Progress towards goal: Met Goal #4: PT to increase strengt of RUE to 4+/5. Goal to be met by: 12/01/16 Progress towards goal: Partially Met Plan PLAN OF CARE EXPIRES ON:: 12/01/16 ORDER # VISITS AND/OR THROUGH DATE: 12/01/16 PLAN: Progress Exercises Frequency: 2 X week Duration: 1 week
--- NOTE | 2016-11-28 10:53 | RS.OTDNOTE ---
Subjective Date of Note: 11/28/16 Visit #: 11 Date of Evaluation: 10/27/16 Payer Source: Insurance Date of Onset/Injury/Change in Status: 08/14/16 Surgery Performed?: No Treatment Diagnosis: Left distal head of radius Treatment Side (optional): Right *Precautions: Walks with quad cane and has weakness Prior Level of Function.....Patient was independent with: ADL's, Self Care, Work /Vocation, Caregiving, Ambulation/Mobility, Community Integration/Access History of Condition/Mechanism of Injury: Patient fell at a ballgame at school. Patient fractured her RUE wrist. Functional Limitations: Carrying Current Complaints/Gains: Pt states she is performing all ADL self care, cooking , cleaning, and yard work with no increase of pain. States good compliance with HEP. Also states no c/o numbness or tingling. Pt agreeable to DC at this time. Gcodes Carry, moving, handling. Goal CH. DC CI at 1% impaired Pain Assessment - Pain Description Pain Description: Sharp, Dull, Aching Pain Location: RUE wrist Pain Description: tightness Current Pain Intensity: 0 Worst Pain Intensity: 1 Interventions - Exercise/Activities Exercise/Activities/Manual Therapy: Pt performed TE utilizing graded red-green blue digiflex, wrist pollution control engineer, 5# hand weight for wrist flexion/extension and pro/supination 15/2 each. Pt also ed and performed red t-band/5# ex/RTC ex's with HEP instructions. Bodyblade performed x 1+ mins x 1 along with wrist roll- up x 4 with 3# resist. Weighted ball catch/throw also performed along with medium strength hand gripper. Green t-band/5# hand weight RTC series ex perfomed also 15/2. HOME EXERCISE PROGRAM: green theraputty: full fist, adduction of digits, MP flexion, pushing down on table top on putty,. weight bearing on table top to increase RUE wrist extension. contrast bath - Objective Findings Objective Findings:: Muscle weakness, tenderness in RUE shoulder, joint stiffness in shoulder and wrist/hand. - Charges Total Direct Minutes: 36 Total Treatment Time: 36 Procedures billed for this date of service:: Ex2 Assessment Patient Education: Education of diagnosis, Body/Joint mechanics, Home Exercise Program, Home Safety, Activity Modification, Education of Plan of Care Patient demonstrates compliance with HEP?: Yes Short Term Goals Goal #1: Patient to increase RUE wrist extension to 0-55 deg.. Goal to be met by: 11/10/16 Progress towards goal: Met Goal #2: Pt to increase RUE wrist flexion to be 0-55. Goal to be met by: 11/10/16 Progress towards goal: Met Goal #3: Pt to decrease RUE pain to 0-2. Goal to be met by: 11/10/16 Progress towards goal: Met Goal #4: PT to increase strengt of RUE to 4/5 Goal to be met by: 11/10/16 Progress towards goal: Met Clinical Analyst Goals Goal #1: Pt to increase RUE wrist extension to be WFL. Goal to be met by: 12/01/16 Progress towards goal: Met Goal #2: Pt to increase RUE wrist flexion to be WFL. Goal to be met by: 12/01/16 Progress towards goal: Met Goal #3: Pt to decrease RUE pain to 0-2. Goal to be met by: 12/01/16 Progress towards goal: Met Goal #4: PT to increase strengt of RUE to 4+/5. Goal to be met by: 12/01/16 Progress towards goal: Met Plan PLAN OF CARE EXPIRES ON:: 12/01/16 ORDER # VISITS AND/OR THROUGH DATE: 12/01/16 PLAN: Plan for Discharge Frequency: DC Duration: DC
--- NOTE | 2016-11-28 10:54 | RS.OTQKDC ---
OT Discharge Date of Discharge: t Number of Visits: 11 Reason for Discharge: Goals met
== END 2016-12-06 ==
PROVIDERS: ATTEND Orthopaedic Surgery
DX: S52.551D Other extraarticular fracture of lower end of right radius, subsequent encounter for closed fracture with routine healing (principal)

== ENCOUNTER 2018-02-05 12:42 | Outpatient (CLI) ==
--- NOTE | 2018-02-05 15:11 | DEXA ---
Exam: Bone densitometry DEXA scan performed on the Bioscan device. Comparison: None available. Reason for exam: Osteoporosis. FINDINGS: Imaging is obtained of the lumbar spine and deemed to be adequate for interpretation. The L2, L3 and L4 vertebral bodies were utilized for interpretation. BMD of the lumbar spine measures 1.205 grams per centimeter squared T-score 0.0. Z-score 0.5 WHO classification suggests normal bone mineral density Imaging is obtained of the left hip and deemed to be adequate for interpretation. Total BMD of the left femoral neck measures 0.797 grams per centimeter squared T-score -1.7. Z-score -1.0 WHO classification suggest osteopenia. Impression: 1. WHO classification suggest osteopenia in the left femoral neck and normal bone mineral density in the lumbar spine. 2. WHO fracture risk assessment tool (FRAX) 10-year probability of fracture risk. Major osteoporotic fracture risk over 10 years. 14.9%. Hip fracture risk over 10 years. 1.9%
--- NOTE | 2018-02-06 09:17 | MAMMO ---
EXAM: Digital screening mammogram with tomosynthesis HISTORY: Screening COMPARISON: None FINDINGS: Digital MLO and CC views of the right and left breast were performed. Tomosynthesis was p erformed. Computer aided detection utilized. There are scattered fibroglandular densities. Benign bi lateral calcifications. There is no evidence for mass, asymmetry, distortion, or suspicious calcifica tions in either breast. IMPRESSION: 1. No evidence of malignancy in the right or left breast. 2. Annual screening mammogram is recommended in one year. BIRADS category 2, benign
== END 2018-02-05 12:43 | disposition home or self-care (01) ==
LOC: RAD 12:42
PROVIDERS: ATTEND Family Medicine
DX: Z12.31 Encounter for screening mammogram for malignant neoplasm of breast (principal); M81.0 Age-related osteoporosis without current pathological fracture
CPT/HCPCS: 77067

== ENCOUNTER 2019-03-18 06:24 | Outpatient (CLI) ==
--- NOTE | 2019-03-18 09:20 | ECHO2D ---
Date of Exam: 03/18/19 Ordering Physician: DR. IAM MEEK Room #: OP Reason for Echo: LEG EDEMA, HTN M-Mode Normal Adult Results LV Dimensions Normal Adult Results AoV Opening excursions >1.6 >1.5 LVEDD-base- 3.5-5.8 3.8 Ao root dimensions 2.0-3.7 3.4 LVESD-base- 3.1-4.6 L. Atrium dimensions 1.9-3.8 5.3 Post. Wall thickness 0.8-1.1 1.2 IV septum (thickness) 0.7-1.2 1.2 Post. Wall excursion 0.72-1.3 NORMAL Septal motion NORMAL Systolic motion R. Ventricular cavity 1.5-2.0 NORMAL LVEF 60% 60% Paradoxical septal wall motion NORMAL 2-D : 2-D M Mode Echocardiogram was performed using apical four chamber and left parasternal long and short axis views. Mitral, tricuspid and aortic valves appear to be normal. Contractility of the left ventricle seems to be normal, so is the cavity size. ENLARGED LEFT ATRIAL CAVITY. Aortic root appears to be normal. There is no pericardial effusion. There is no thrombus noted in the left ventricular or left aortic cavity. No mitral valve prolapse noted. M-MODE: MV: NORMAL AV: NORMAL TV: NORMAL PV: CHAMBER SIZE: ENLARGED LEFT ATRIAL CAVITY WALL MOTION: NORMAL PERICARDIUM: NORMAL INTERPRETATION: 1. BORDERLINE LEFT VENTRICULAR HYPERTROPHY 2. MARKEDLY ENLARGED LEFT ATRIAL CAVITY 3. NORMAL LEFT VENTRICULAR CONTRACTILITY 4. NORMAL VALVES MTDD
== END 2019-03-18 06:25 | disposition home or self-care (01) ==
LOC: CAR 06:24
PROVIDERS: ATTEND Family Medicine
DX: R60.0 Localized edema (principal)